=== PATIENT | female | born 1980 | race Caucasian/White ===

== ENCOUNTER 2020-07-26 14:57 | Inpatient (IN) | payer MEDICAID ==
[~2020-07-26] VITALS: Ht 172.7 cm; Wt 85.0 kg
[~2020-07-26 14:57] MED LIST: CARI-277; IBUP800T24 OR; NOR10T; PROZAC
[2020-07-26] MEDS ORDERED: ACCU-CHEK COMFORT CURVE STRIP VI ONE (15:15)
[2020-07-26] MEDS: PROPOFOL 100 ML IV SCH (15:24)
[2020-07-26 15:50] LABS: Urine Bacteria NONE SEEN /hpf (None Seen); Urine Blood Negative /uL (Negative); Urine Hyaline Cast FEW /lpf (0 - 2); Urine Mucus FEW (None Seen); Urine Specific Gravity 1.023 (1.001-1.035); Urine WBC 5 /hpf (0 - 5)
[2020-07-26 15:52] LABS: Basophils # (auto) 0 10 ^3/uL (0-0.2); Eosinophils # (auto) 0 10 ^3/uL (0-0.8); Hemoglobin 16.2 g/dL (12.2-16.2); Neutrophils # (auto) 10.6 10 ^3/uL (1.6-8.6); Red Blood Cells 5.99 10^6/uL (4.0-5.20)
[2020-07-26 15:55] LABS: Basophils % (auto) 0.1 % (0.0-2.0); Hematocrit 53.8 % (36.0-46.0); Lymphocytes # (auto) 1.4 10 ^3/uL (0.4-5.4); Lymphocytes % (auto) 10.2 % (10.0-50.0); Mean Corpuscular Hgb Conc. 30.1 g/dL (32.0-36.0); Mean Corpuscular Volume 89.8 fL (80.0-100.0); Monocytes # (auto) 1.5 10 ^3/uL (0-1.3); Monocytes % (auto) 11.2 % (0.0-12.0); Neutrophils % (auto) 78.5 % (37.0-80.0); Platelet Count (auto) 421 10^3/uL (140-450); Red Cell Distribution Width 14.3 % (11.8-14.3); White Blood Cell 13.5 10^3/uL (4.4-10.8)
[2020-07-26] MEDS ORDERED: cefTRIAXone 1GM/50ML D5W 50 ML IV ONE (16:00)
[2020-07-26 16:09] LABS: Albumin 2.9 g/dL (3.4-5.0)
[2020-07-26 16:11] LABS: Total Protein 7.4 g/dL (6.4-8.2)
[2020-07-26 16:14] LABS: Lactic Acid w/Reflex 5.2 mmol/L (0.4-2.0)
[2020-07-26 16:18] LABS: Bilirubin, Total 0.5 mg/dL (0.2-1.0)
[2020-07-26 16:41] LABS: BUN/Creatinine Ratio 22.7
[2020-07-26 16:43] LABS: INR 1.1 (0.9-1.15); Partial Thromboplastin Time 22.8 sec (23.0-31.2)
[2020-07-26] MEDS ORDERED: DEXTROSE (50%) 50ML SYRG IV PRN (17:15)
[2020-07-26] MEDS ORDERED: InsuLIN R (HUMAN) 100 UNITS in SODIUM CHL 0.9% 99 ML IV SCH ×3 (17:15→21:30)
[2020-07-26] MEDS ORDERED: INSULIN LANTUS (GLARGINE) 1 /0.01ml (100units/ml) SC ONE (17:15)
[2020-07-26] MEDS: SODIUM CHLORIDE 0.9% 1,000 ML IV SCH ×3 (17:36→22:23)
[2020-07-26 17:55] VITALS: BP 77/44
[2020-07-26] MEDS: ACCU-CHEK COMFORT CURVE STRIP VI SCH ×4 (18:00→22:49)
[2020-07-26] MEDS ORDERED: SODIUM CHLORIDE 0.9% 2,000 ML IV ONE (19:00)
[2020-07-26] MEDS: NOREPINEPHRINE 8 MG/250ML KIT 250 ML IV SCH ×3 (19:15→22:24)
[2020-07-26] MEDS: fentaNYL Drip 2500mCg/250mlNS 250 ML IV SCH ×2 (20:07→20:50)
[2020-07-26] MEDS: MIDAZOLAM DRIP 50 mg/50mL 50 ML IV SCH (20:09)
[2020-07-26] MEDS ORDERED: ACETAMINOPHEN 650 mg PER 20.3 mL UD PO ONE (21:00)
[2020-07-26] MEDS ORDERED: SODIUM CHLORIDE 0.9% 1,000 ML IV SCH (21:15)
[2020-07-26] MEDS ORDERED: ACETAMINOPHEN 650 mg PER 20.3 mL UD GT ONE (21:45)
[2020-07-26] MEDS ORDERED: CEFEPIME 2 GM in SODIUM CHL 0.9% 50 ML IV ONE ×4 (21:45)
[2020-07-26 22:35] LABS: Basophils # (auto) 0 10 ^3/uL (0-0.2); Basophils % (auto) 0.1 % (0.0-2.0); Eosinophils # (auto) 0 10 ^3/uL (0-0.8); Monocytes # (auto) 0.5 10 ^3/uL (0-1.3); White Blood Cell 9.6 10^3/uL (4.4-10.8)
[2020-07-26 22:37] LABS: Lymphocytes # (auto) 2.2 10 ^3/uL (0.4-5.4); Lymphocytes % (auto) 22.4 % (10.0-50.0); Mean Corpuscular Hemoglobin 27.1 pg (28.0-32.0); Mean Corpuscular Hgb Conc. 31.3 g/dL (32.0-36.0); Mean Corpuscular Volume 86.5 fL (80.0-100.0); Monocytes % (auto) 4.9 % (0.0-12.0); Neutrophils % (auto) 72.6 % (37.0-80.0); Nucleated Red Blood Cells % 0.2 %; Platelet Count (auto) 246 10^3/uL (140-450); Red Blood Cells 6.65 10^6/uL (4.0-5.20); Red Cell Distribution Width 14.4 % (11.8-14.3)
[2020-07-26 22:42] LABS: Hematocrit 57.5 % (36.0-46.0)
[2020-07-26 22:43] VITALS: BP 80/48
[2020-07-26 23:00] LABS: BUN/Creatinine Ratio 25.5; Calcium 7.9 mg/dL (8.5-10.1); Magnesium 3.1 mg/dL (1.6-2.6); Phosphorus 2.4 mg/dL (2.5-4.90)
[2020-07-26] MEDS: InsuLIN R (HUMAN) 100 UNITS in SODIUM CHL 0.9% 99 ML IV SCH (23:01)
[2020-07-26 23:09] LABS: Potassium 2.9 mmol/L (3.5-5.1)
[2020-07-26] MEDS ORDERED: InsuLIN REG 1unit/0.01ml Soln (100units/ml) ONE (23:09)
[2020-07-26] MEDS ORDERED: POTASSIUM CHL 20MEQ/100ML 200 ML IV ONE (23:22)
[2020-07-26] MEDS: POTASSIUM CHL 20MEQ/100ML 100 ML IV SCH (23:46)
[2020-07-26] MEDS ORDERED: PHENYLEPHRINE IV 250 ML IV ONE (23:51)
[2020-07-27] MEDS: ACCU-CHEK COMFORT CURVE STRIP VI SCH ×19 (00:25→23:33)
[2020-07-27] MEDS ORDERED: IBUPROFEN 100MG/5ML ORAL SUSP 100 MG/5 ML UD GT ONE (00:30)
[2020-07-27] MEDS ORDERED: VANCOMYCIN 1,500 MG in D5W 5% 250 ML IV STA (00:32)
[2020-07-27] MEDS ORDERED: VANCOMYCIN 1GM/250ML 250 ML IV ONE (00:45)
[2020-07-27] MEDS ORDERED: ONDANSETRON HCL 4 MG/2 ML VIAL IV PRN (01:00)
[2020-07-27] MEDS ORDERED: ALBUTEROL SULF 2.5 MG/0.5ML(0.5%) NEB SOLN NEB PRN (01:00)
[2020-07-27] MEDS ORDERED: VANCOMYCIN PER PHARMACY 0 MG IV SCH (01:15)
[2020-07-27] MEDS ORDERED: ACETAMINOPHEN 325 MG TAB PO PRN (01:15)
[2020-07-27] MEDS: POTASSIUM CHL 20MEQ/100ML 100 ML IV SCH ×3 (01:22→06:43)
[2020-07-27] MEDS: MIDAZOLAM DRIP 50 mg/50mL 50 ML IV SCH ×2 (02:04→08:43)
[2020-07-27 02:37] VITALS: BP 112/34
[2020-07-27 03:40] LABS: Anion Gap 18 (5-15); BUN/Creatinine Ratio 28.4; Calcium 7.9 mg/dL (8.5-10.1); Carbon Dioxide 21 mmol/L (21-32); Chloride 111 mmol/L (98-107); GFR African American 22 mL/min; GFR Non-African American 18 mL/min; Sodium 150 mmol/L (136-145)
[2020-07-27 03:50] LABS: Potassium 2.9 mmol/L (3.5-5.1)
[2020-07-27 03:51] LABS: Blood Urea Nitrogen 86 mg/dL (7-18); Glucose 437 mg/dL (74-106)
[2020-07-27] MEDS ORDERED: D5W/SOD CHL 0.9%/KCL 40MEQ 1,000 ML IV ONE (03:55)
--- NOTE | 2020-07-27 04:56 | NUR ---
ACCOMPANIED PT TO CT. PT TRANSPORTED WITH RN AND RT AT BEDSIDE WITH NO INCIDENT. PT ON TRANSPORT VENT WITH APPROPRIATE PORTABLE O2 AND PREVIOUS VENT SETTINGS. AMBU-BAG WITH MASK AND PEEP VALVE WITH PT. UPON RETURN TO PT ROOM PT PLACED BACK ON VENT WITH CURRENT SETTINGS.
[2020-07-27] MEDS ORDERED: PHENYLEPHRINE IV 250 ML IV ONE ×4 (04:57→09:43)
[2020-07-27 04:59] LABS: Lactic Acid w/Reflex 4.9 mmol/L (0.4-2.0)
[2020-07-27 05:02] LABS: Potassium 3.1 mmol/L (3.5-5.1)
[2020-07-27 05:10] LABS: BUN/Creatinine Ratio 31.3; Calcium 7.4 mg/dL (8.5-10.1)
[2020-07-27] MEDS: SODIUM CHLORIDE 0.9% 1,000 ML IV SCH ×3 (05:14→19:15)
[2020-07-27] MEDS: InsuLIN R (HUMAN) 100 UNITS in SODIUM CHL 0.9% 99 ML IV SCH ×4 (05:19→10:55)
[2020-07-27] MEDS: POTASSIUM CHLORIDE 40 MEQ in D5W 5% 1,000 ML IV SCH ×3 (05:27→17:57)
[2020-07-27 06:08] VITALS: BP 108/67
[2020-07-27] MEDS ORDERED: NITROGLYCERIN 0.4 MG SL TAB SL PRN (06:30)
[2020-07-27] MEDS ORDERED: MORPHINE SULF INJ 2 MG/ML SYRINGE 1ML IV PRN (06:30)
[2020-07-27] MEDS: NOREPINEPHRINE 8 MG/250ML KIT 250 ML IV SCH (08:44)
[2020-07-27 08:48] LABS: Urine Bacteria NONE SEEN /hpf (None Seen); Urine Blood 2+ /uL (Negative); Urine Specific Gravity 1.014 (1.001-1.035); Urine WBC 10 /hpf (0 - 5)
[2020-07-27 09:08] LABS: Alcohol, Urine < 3.0 mg/dL (0-10); Amphetamine Screen, Urine NEGATIVE (NEGATIVE); Barbiturate Scree,Urine NEGATIVE (NEGATIVE); Benzodiazephine Screen, Urine POSITIVE (NEGATIVE); Cannabinoid Screen, Urine NEGATIVE (NEGATIVE); Cocaine Screen, Urine NEGATIVE (NEGATIVE); Opiate Scree,Urine NEGATIVE (NEGATIVE); Phencyclidine Screen, Urine NEGATIVE (NEGATIVE)
[2020-07-27] MEDS: D5W/SOD CHL 0.45% 1,000 ML IV SCH ×2 (10:10→20:00)
[2020-07-27] MEDS: PANTOPRAZOLE 40 MG/10 ML VIAL INJ IV SCH (10:11)
[2020-07-27] MEDS: InsuLIN REG 1unit/0.01ml Soln (100units/ml) SC SCH ×4 (12:00→21:17)
[2020-07-27 12:35] LABS: Calcium 7.4 mg/dL (8.5-10.1); Magnesium 2.4 mg/dL (1.6-2.6); Potassium 4.3 mmol/L (3.5-5.1)
[2020-07-27 12:39] LABS: BUN/Creatinine Ratio 32.7
[2020-07-27] MEDS: INSULIN LANTUS (GLARGINE) 1 /0.01ml (100units/ml) SC SCH (12:45)
[2020-07-27] MEDS: CEFEPIME 1 GM in SODIUM CHL 0.9% 50 ML IV SCH ×2 (13:28→20:14)
[2020-07-27] MEDS: PROPOFOL 100 ML IV SCH (14:40)
[2020-07-27 14:48] VITALS: BP 130/85
[2020-07-27 18:37] LABS: BUN/Creatinine Ratio 30.4; Calcium 7.8 mg/dL (8.5-10.1); Potassium 4.8 mmol/L (3.5-5.1)
[2020-07-27 18:40] VITALS: BP 121/77
[2020-07-27 22:00] VITALS: BP 116/77
[2020-07-27] MEDS: ATORVASTATIN 20 MG TAB PO SCH (22:00)
[2020-07-27 22:13] LABS: Cholesterol 87 mg/dL (< 200)
[2020-07-27 22:15] LABS: HDL Cholesterol 10 mg/dL (40-59); LDL Cholesterol 38 mg/dL (< 100); Triglycerides 345 mg/dL (< 150)
[2020-07-28] VITALS (31 sets, daily range): BP systolic 75–154; BP diastolic 43–100
[2020-07-28] MEDS: POTASSIUM CHLORIDE 40 MEQ in D5W 5% 1,000 ML IV SCH ×2 (00:09→05:09)
[2020-07-28] MEDS: SODIUM CHLORIDE 0.9% 1,000 ML IV SCH ×4 (03:05→21:55)
[2020-07-28] MEDS: ACCU-CHEK COMFORT CURVE STRIP VI SCH ×6 (04:21→20:00)
[2020-07-28] MEDS: D5W/SOD CHL 0.45% 1,000 ML IV SCH ×2 (05:10→18:15)
[2020-07-28] MEDS: MIDAZOLAM DRIP 50 mg/50mL 50 ML IV SCH (06:50)
[2020-07-28] MEDS: InsuLIN REG 1unit/0.01ml Soln (100units/ml) SC SCH ×4 (08:28→20:00)
[2020-07-28] MEDS: ASPirin 81 mg TAB PO SCH (08:54)
[2020-07-28] MEDS: CEFEPIME 1 GM in SODIUM CHL 0.9% 50 ML IV SCH ×2 (08:54→22:00)
[2020-07-28] MEDS: PANTOPRAZOLE 40 MG/10 ML VIAL INJ IV SCH (08:54)
[2020-07-28] MEDS: INSULIN LANTUS (GLARGINE) 1 /0.01ml (100units/ml) SC SCH ×2 (08:54→22:00)
[2020-07-28] MEDS: NOREPINEPHRINE 8 MG/250ML KIT 250 ML IV SCH (09:57)
[2020-07-28 10:30] LABS: Basophils # (auto) 0 10 ^3/uL (0-0.2); Eosinophils # (auto) 0.2 10 ^3/uL (0-0.8); Hemoglobin 12.5 g/dL (12.2-16.2); Lymphocytes # (auto) 1.5 10 ^3/uL (0.4-5.4); Monocytes % (auto) 5.8 % (0.0-12.0); Neutrophils % (auto) 80.9 % (37.0-80.0); Nucleated Red Blood Cells % 0.1 %; Red Cell Distribution Width 13.8 % (11.8-14.3)
[2020-07-28 10:32] LABS: Basophils % (auto) 0.2 % (0.0-2.0); Eosinophils % (auto) 1.2 % (0.0-7.0); Hematocrit 38.9 % (36.0-46.0); Lymphocytes % (auto) 11.9 % (10.0-50.0); Mean Corpuscular Hemoglobin 26.9 pg (28.0-32.0); Mean Corpuscular Hgb Conc. 32.2 g/dL (32.0-36.0); Mean Corpuscular Volume 83.7 fL (80.0-100.0); Monocytes # (auto) 0.7 10 ^3/uL (0-1.3); Neutrophils # (auto) 10.4 10 ^3/uL (1.6-8.6); Platelet Count (auto) 125 10^3/uL (140-450); Red Blood Cells 4.65 10^6/uL (4.0-5.20); White Blood Cell 12.9 10^3/uL (4.4-10.8)
--- NOTE | 2020-07-28 10:45 | NUR ---
WOUND CARE NOTE: ADDED PATIENT TO SKIN INTEGRITY MONITORING D/T INTUBATION STATUS. PATIENT IN ER BED 3, INTUBATED, RESTING ON GURNEY. WILL ATTEMPT TO GET HOSPITAL BED WITH AIR PUMP IN ROOM, WILL CALL SPORTS PHOTOGRAPHER. BEDSIDE NURSE IS CURRENTLY UNAVAILABLE. CANNOT ASSESS PATIENT AT THIS TIME. WILL ATTEMPT TO SEE AT LATER TIME.
[2020-07-28 10:53] LABS: Calcium 7.9 mg/dL (8.5-10.1)
[2020-07-28 10:56] LABS: BUN/Creatinine Ratio 18.2; Phosphorus 1.6 mg/dL (2.5-4.90)
[2020-07-28] MEDS: ENOXAPARIN SOD 80 MG/0.8ML SYRINGE SC SCH ×2 (11:51→22:00)
[2020-07-28] MEDS ORDERED: SODIUM CHLORIDE 0.9% 1,000 ML IV ONE (12:15)
[2020-07-28] MEDS ORDERED: INSULIN LANTUS (GLARGINE) 1 /0.01ml (100units/ml) SC ONE (12:15)
--- NOTE | 2020-07-28 14:00 | NUR ---
Admit to ICU from ER on vent MILTON QURESHI admitted to ICU via gurney on cardiac rn, intubated and being bagged by Respiratory Therapist. Patient transfered to bed, connected to mechanical ventilator by therapist, ANDERSON at bedside. Patient connected to ICU monitoring, weighed by bedscale, oriented to Yovana alvarez RN, unit, ventilator and sedation. Bed locked on low position, side rails up x2, bed alarms on at all times, will continue to monitor.
--- NOTE | 2020-07-28 14:05 | NUR ---
LT AC IV infiltrated, discontinued with sterile technique, catheter fully intact. Pressure dressing applied to site. Patient tolerated procedure well.
--- NOTE | 2020-07-28 14:30 | NUR ---
IV insertion IV access obtained, via clean sterile technique by inserting 20 gauge catheter at LT shouldetr after one attempt by Jose ZAVALA. IV secured properly. No trauma to site. Patient tolerated well.
[2020-07-28] MEDS: PROPOFOL 100 ML IV SCH (15:15)
[2020-07-28] MEDS: VANCOMYCIN 1GM/250ML 250 ML IV SCH ×2 (15:15→21:00)
--- NOTE | 2020-07-28 16:00 | NUR ---
Spoke to Dr Bean over the phone, updated on patient's status. Order received to place PICC line.
--- NOTE | 2020-07-28 16:05 | NUR ---
Spoke to Dr Miranda, updated on patient's status. Received order to discontinue sedation, plan to CPAP patient. Read back and verified. Will carry out.
--- NOTE | 2020-07-28 16:40 | NUR ---
MRSA swab sent to lab
--- NOTE | 2020-07-28 16:51 | NUR ---
Spoke to patient's mother over the phone, updated on patent's status and POC, verbalized understanding. All questions and concerns addressed.
--- NOTE | 2020-07-28 18:00 | NUR ---
Wound photograph taken for reference.
[2020-07-28] MEDS: fentaNYL Drip 2500mCg/250mlNS 250 ML IV SCH (19:45)
--- NOTE | 2020-07-28 20:00 | NUR ---
Consent for central line placement obtained from patient's mother with Tanya ZAVALA, Dr Fitch informed.
[2020-07-28] MEDS: ATORVASTATIN 20 MG TAB PO SCH (22:00)
[2020-07-29] VITALS (88 sets, daily range): BP systolic 81–151; BP diastolic 41–91
[2020-07-29] MEDS: D5W/SOD CHL 0.45% 1,000 ML IV SCH ×2 (02:00→12:00)
[2020-07-29] MEDS: InsuLIN REG 1unit/0.01ml Soln (100units/ml) SC SCH ×6 (04:00→20:00)
[2020-07-29] MEDS: ACCU-CHEK COMFORT CURVE STRIP VI SCH ×6 (04:00→20:00)
[2020-07-29] MEDS: VANCOMYCIN 1GM/250ML 250 ML IV SCH ×3 (04:23→22:00)
[2020-07-29 04:28] LABS: Basophils # (auto) 0 10 ^3/uL (0-0.2); Basophils % (auto) 0.4 % (0.0-2.0); Eosinophils # (auto) 0.2 10 ^3/uL (0-0.8); Eosinophils % (auto) 1.3 % (0.0-7.0); Hemoglobin 11.4 g/dL (12.2-16.2); Lymphocytes # (auto) 2.1 10 ^3/uL (0.4-5.4); Lymphocytes % (auto) 16.4 % (10.0-50.0); Mean Corpuscular Hgb Conc. 32.5 g/dL (32.0-36.0); Mean Corpuscular Volume 83.2 fL (80.0-100.0); Monocytes # (auto) 0.8 10 ^3/uL (0-1.3); Monocytes % (auto) 6.2 % (0.0-12.0); Neutrophils # (auto) 9.6 10 ^3/uL (1.6-8.6); Neutrophils % (auto) 75.7 % (37.0-80.0); Nucleated Red Blood Cells % 0.1 %; Platelet Count (auto) 121 10^3/uL (140-450); Red Blood Cells 4.21 10^6/uL (4.0-5.20); Red Cell Distribution Width 13.5 % (11.8-14.3); White Blood Cell 12.6 10^3/uL (4.4-10.8)
[2020-07-29] MEDS: SODIUM CHLORIDE 0.9% 1,000 ML IV SCH ×3 (04:35→17:55)
[2020-07-29 08:17] LABS: Albumin 1.5 g/dL (3.4-5.0); BUN/Creatinine Ratio 11.7; Calcium 7.6 mg/dL (8.5-10.1); Potassium 3.9 mmol/L (3.5-5.1)
[2020-07-29 08:20] LABS: Bilirubin, Total 0.2 mg/dL (0.2-1.0)
[2020-07-29] MEDS: CEFEPIME 1 GM in SODIUM CHL 0.9% 50 ML IV SCH ×2 (10:00→21:17)
[2020-07-29] MEDS: ENOXAPARIN SOD 80 MG/0.8ML SYRINGE SC SCH ×2 (10:13→22:00)
[2020-07-29] MEDS: ASPirin 81 mg TAB PO SCH (10:13)
[2020-07-29] MEDS: PANTOPRAZOLE 40 MG/10 ML VIAL INJ IV SCH (10:14)
[2020-07-29] MEDS: INSULIN LANTUS (GLARGINE) 1 /0.01ml (100units/ml) SC SCH ×2 (10:14→22:00)
--- NOTE | 2020-07-29 10:35 | NUR ---
FAMILY Received phone call from patients mother Gissel Gutierrez, confirmed password, updated on patient condition. Informed Gissel that this RN will notify MD to call her for an update when he arrives to examine patient.
[2020-07-29] MEDS ORDERED: FOLIC ACID 1 MG, MULTIPLE VITAMIN 10 ML, MAGNESIUM SULF SDV 50% 8 MEQ, THIAMINE INJ 100... INJ SCH ×5 (12:00)
--- NOTE | 2020-07-29 12:20 | NUR ---
MD Dr. Gibson at bedside to examine patient, updated on patient condition with new orders, this RN to input into system. Will continue to monitor patient closely.
--- NOTE | 2020-07-29 12:25 | NUR ---
CENTRAL LINE Dr. Gibson at bedside to place central line to the right femoral (TLC): good blood return and flushes easily. New orders received to remove Right IJ. Will continue to monitor patient closely.
--- NOTE | 2020-07-29 12:33 | NUR ---
FAMILY Called and spoke to patients mother Ag Gutierrez, confirmed password and updated on patient condition. Ag was concerned earlier regarding central line not being replaced. Informed AG that it has been replaced and Ag states " Peace of mind, thank you for calling."
--- NOTE | 2020-07-29 13:13 | NUR ---
Nutrition Assessment Est energy needs 7086-4806 kcal (25-30 kcal/kg IBW 63.6kg) est protein needs 64-70g (1-1.1g/kg IBW 63.6kg) Will monitor and reassess prn. Addendum: 07/29/20 at [address] Amended: Links added.
[2020-07-29] MEDS: PROPOFOL 100 ML IV SCH (15:15)
--- NOTE | 2020-07-29 18:00 | NUR ---
WOUND CARE NOTE: PATIENT NOTED TO HAVE WOUND UPON PRESENTATION TO THE ICU FROM ER. PATIENT ADMITTED TO [facility] WITH DIAGNOSIS OF SEPSIS, RESPIRATORY FAILURE. SHE HAS CURRENT JOSE LUIS SCORE OF 8. PATIENT INTUBATED, SEDATED. WOUND PHOTO TAKEN UPON TRANSFER TO ICU BY BEDSIDE NURSE FOR REFERENCE. IT APPEARS THAT PATIENT HAS OBTAINED A DTI TO THE LEFT BUTTOCK, PROBABLY DUE TO HER SÁNCHEZ CATHETER, OR OTHER LINE. SKIN/WOUND CARE PLAN IMPLEMENTED. RECOMMEND: FREQUENT TURN SCHEDULE Q 2 HOURS, PRN CONDITION PERMITS, WITH PRESSURE REDISTRIBUTION, USING PILLOWS/WEDGES, BID/PRN APPLICATION WITH MOISTURE BARRIER CREAM, OPTIFOAM GENTLE SACRAL DRESSING PREVENTATIVE, DAILY/PRN DRESSING TO LEFT BUTTOCK WOUND, DIETARY CONSULT, CONTINUED MONITORING BY WOUND CARE TEAM. Addendum: 07/29/20 at 1839 by Mickie Louis RN Amended: Links added.
[2020-07-29] MEDS: NOREPINEPHRINE 8 MG/250ML KIT 250 ML IV SCH (19:15)
[2020-07-29] MEDS: MIDAZOLAM DRIP 50 mg/50mL 50 ML IV SCH (19:45)
[2020-07-29] MEDS: fentaNYL Drip 2500mCg/250mlNS 250 ML IV SCH (19:45)
[2020-07-29] MEDS: ATORVASTATIN 20 MG TAB PO SCH (21:16)
--- NOTE | 2020-07-29 22:00 | NUR ---
Vancomycin trough level was 11.4, therapeutic, dose given as scheduled.
[2020-07-30] VITALS (62 sets, daily range): BP systolic 83–123; BP diastolic 48–83
[2020-07-30] MEDS: SODIUM CHLORIDE 0.9% 1,000 ML IV SCH ×4 (00:35→20:35)
[2020-07-30 03:41] LABS: Basophils # (auto) 0 10 ^3/uL (0-0.2); Eosinophils # (auto) 0.1 10 ^3/uL (0-0.8); Mean Corpuscular Hgb Conc. 32.4 g/dL (32.0-36.0); White Blood Cell 11.7 10^3/uL (4.4-10.8)
[2020-07-30 03:45] LABS: Basophils % (auto) 0.1 % (0.0-2.0); Eosinophils % (auto) 1.1 % (0.0-7.0); Hematocrit 36.6 % (36.0-46.0); Hemoglobin 11.9 g/dL (12.2-16.2); Lymphocytes # (auto) 1.2 10 ^3/uL (0.4-5.4); Lymphocytes % (auto) 10.6 % (10.0-50.0); Mean Corpuscular Volume 83.3 fL (80.0-100.0); Monocytes # (auto) 1.3 10 ^3/uL (0-1.3); Monocytes % (auto) 11.4 % (0.0-12.0); Neutrophils % (auto) 76.8 % (37.0-80.0); Platelet Count (auto) 148 10^3/uL (140-450); Red Blood Cells 4.39 10^6/uL (4.0-5.20); Red Cell Distribution Width 13.6 % (11.8-14.3)
[2020-07-30] MEDS: ACCU-CHEK COMFORT CURVE STRIP VI SCH ×6 (04:00→20:00)
[2020-07-30] MEDS: InsuLIN REG 1unit/0.01ml Soln (100units/ml) SC SCH ×6 (04:00→20:00)
[2020-07-30] MEDS: D5W/SOD CHL 0.45% 1,000 ML IV SCH ×3 (04:42→18:00)
[2020-07-30] MEDS: VANCOMYCIN 1GM/250ML 250 ML IV SCH ×3 (05:00→21:00)
--- NOTE | 2020-07-30 08:00 | NUR ---
TEMPERATURE Cooling measures applied.
[2020-07-30] MEDS: ASPirin 81 mg TAB PO SCH (09:47)
[2020-07-30] MEDS: CEFEPIME 1 GM in SODIUM CHL 0.9% 50 ML IV SCH ×2 (09:47→21:49)
[2020-07-30] MEDS: PANTOPRAZOLE 40 MG/10 ML VIAL INJ IV SCH (09:47)
[2020-07-30] MEDS: ENOXAPARIN SOD 80 MG/0.8ML SYRINGE SC SCH ×2 (09:48→21:51)
[2020-07-30] MEDS: INSULIN LANTUS (GLARGINE) 1 /0.01ml (100units/ml) SC SCH ×2 (10:09→21:50)
--- NOTE | 2020-07-30 11:35 | NUR ---
MD Dr. Gibson at bedside to examine patient updated on patient condition with no new orders. Will continue to monitor patient closely.
[2020-07-30 12:10] LABS: Hepatitis B Surface Antibody Negative
[2020-07-30 12:40] LABS: Hepatitis A Total Antibody Negative
[2020-07-30 13:15] LABS: Hepatitis B Core Total AB Negative; Hepatitis B Surface Antigen Negative (Negative); Hepatitis C Antibody Negative (Negative)
[2020-07-30] MEDS: PROPOFOL 100 ML IV SCH (15:15)
--- NOTE | 2020-07-30 18:00 | NUR ---
MD Dr. Dozier at bedside to examine patient updated on patient condition with new orders this RN to input into system. Will carry out orders per MD.
[2020-07-30] MEDS: NOREPINEPHRINE 8 MG/250ML KIT 250 ML IV SCH (19:15)
[2020-07-30 19:51] LABS: Albumin 1.5 g/dL (3.4-5.0); Calcium 8.6 mg/dL (8.5-10.1)
[2020-07-30 19:56] LABS: Bilirubin, Total 0.3 mg/dL (0.2-1.0)
[2020-07-30 20:10] LABS: Potassium 2.9 mmol/L (3.5-5.1)
[2020-07-30] MEDS: ATORVASTATIN 20 MG TAB PO SCH (21:49)
[2020-07-30] MEDS: POTASSIUM CHL 20MEQ/100ML 200 ML IV PRN (22:45)
[2020-07-31] VITALS (61 sets, daily range): BP systolic 86–161; BP diastolic 50–107
[2020-07-31] MEDS: POTASSIUM CHL 20MEQ/100ML 200 ML IV PRN (00:43)
[2020-07-31] MEDS: SODIUM CHLORIDE 0.9% 1,000 ML IV SCH ×4 (03:15→23:15)
[2020-07-31] MEDS: D5W/SOD CHL 0.45% 1,000 ML IV SCH ×3 (04:00→18:09)
[2020-07-31] MEDS: ACCU-CHEK COMFORT CURVE STRIP VI SCH ×6 (04:00→20:00)
[2020-07-31] MEDS: InsuLIN REG 1unit/0.01ml Soln (100units/ml) SC SCH ×6 (04:00→20:00)
[2020-07-31 04:51] LABS: Basophils # (auto) 0 10 ^3/uL (0-0.2); Basophils % (auto) 0.2 % (0.0-2.0); Eosinophils # (auto) 0.2 10 ^3/uL (0-0.8); Eosinophils % (auto) 1.7 % (0.0-7.0); Hematocrit 36.7 % (36.0-46.0); Lymphocytes # (auto) 1.5 10 ^3/uL (0.4-5.4); Lymphocytes % (auto) 13.9 % (10.0-50.0); Mean Corpuscular Hemoglobin 27.1 pg (28.0-32.0); Mean Corpuscular Hgb Conc. 32.7 g/dL (32.0-36.0); Mean Corpuscular Volume 82.9 fL (80.0-100.0); Monocytes # (auto) 1.5 10 ^3/uL (0-1.3); Monocytes % (auto) 13.5 % (0.0-12.0); Neutrophils # (auto) 7.6 10 ^3/uL (1.6-8.6); Neutrophils % (auto) 70.7 % (37.0-80.0); Nucleated Red Blood Cells % 0.3 %; Platelet Count (auto) 229 10^3/uL (140-450); Red Blood Cells 4.42 10^6/uL (4.0-5.20); Red Cell Distribution Width 13.6 % (11.8-14.3); White Blood Cell 10.8 10^3/uL (4.4-10.8)
[2020-07-31] MEDS: VANCOMYCIN 1GM/250ML 250 ML IV SCH ×3 (05:00→21:00)
[2020-07-31 05:12] LABS: Potassium 3.5 mmol/L (3.5-5.1)
[2020-07-31 05:18] LABS: Albumin 1.5 g/dL (3.4-5.0); Bilirubin, Total 0.2 mg/dL (0.2-1.0); Calcium 8.5 mg/dL (8.5-10.1)
--- NOTE | 2020-07-31 08:00 | NUR ---
Opening Shift Note Ass[facility] care of [facility], [facility]. No S/S of distress/SOB or pain. See interventions for complete assessment. Bed locked on low position, side rails up x2, bed alarms on at all times, will continue to monitor for changes Q1hr and PRN.
--- NOTE | 2020-07-31 08:05 | NUR ---
Patient's temperature 100 orally, cooling measures done. Will continue to monitor.
--- NOTE | 2020-07-31 08:15 | NUR ---
Dr Petersen at bedside, updated on patient's status. Patient seen and examined. No new orders at this time.
[2020-07-31] MEDS: ENOXAPARIN SOD 80 MG/0.8ML SYRINGE SC SCH ×2 (09:43→22:00)
[2020-07-31] MEDS: ASPirin 81 mg TAB PO SCH (09:43)
[2020-07-31] MEDS: PANTOPRAZOLE 40 MG/10 ML VIAL INJ IV SCH (09:45)
[2020-07-31] MEDS: CEFEPIME 1 GM in SODIUM CHL 0.9% 50 ML IV SCH ×2 (09:54→22:00)
[2020-07-31] MEDS: INSULIN LANTUS (GLARGINE) 1 /0.01ml (100units/ml) SC SCH ×2 (10:00→22:00)
--- NOTE | 2020-07-31 10:30 | NUR ---
EEG in progress at bedside.
--- NOTE | 2020-07-31 10:58 | NUR ---
Dr Miranda at bedside, updated on patient's status. Patient seen and examined. No new orders at this time.
--- NOTE | 2020-07-31 11:59 | NUR ---
Received call from patient's mother Cecy who's able to provide password. Updated on patient's status and POC, verbalized understanding. All questions and concerns addressed.
--- NOTE | 2020-07-31 14:06 | NUR ---
Spoke to Dr Gibson regarding patient's RT IJ removal, order received to do RT neck US for now. Read back and verified. Will carry out.
--- NOTE | 2020-07-31 14:24 | NUR ---
Spoke to Dr Gibson over the phone, order received for carotid scan instead of neck ultrasound. Read back and verified. Will carry out.
--- NOTE | 2020-07-31 14:53 | NUR ---
Nutrition Followup Note Wt: 181.4 kg Pt intubated off propofol. pt is currently NPO with no new diet order. Est energy needs 5467-5982 kcal (25-30 kcal/kg IBW 63.6kg) est protein needs 64-70g (1-1.1g/kg IBW 63.6kg) Will monitor and reassess prn. Labs: GLU 209 H ALB 1.5 L ALP 163 H BM: Pt has no BM reported per RN note Skin: BS 9 high risk, full details in emergency care tech note. PES: Inadequate oral intake aeb pt with NPO diet order, intubated and sedated r/t current medical condition Altered nutrition related labs aeb pt with hyperglycemia, elevated HgbA1c, hypoalb r/t current and chronic medical conditions Comments: Continue to monitor NPO status, labs, skin. F/u high 2-3 days. Rec: 1) refer pt to [facility] on Dc. 2) continue current plan of care. 3) Consider alternate nutrition if pt NPO >48hrs. 4) consider Glucerna 1.2 at a goal rate of 60 ml/hr if GI is accessible, or TPN. 5) advance diet as medically feasible
--- NOTE | 2020-07-31 16:30 | NUR ---
Attempt to bring patient to CT by glass carrier Kaia, RT not available at this time per Kaia.
--- NOTE | 2020-07-31 17:50 | NUR ---
Dr Bean at bedside, updated on patient's status. Informed CT still pending, informed of thrombus RT neck per US report. Received order to remove RT IJ. Read back and verified. Will carry out.
--- NOTE | 2020-07-31 18:11 | NUR ---
RECEIVED PT IN PIPE INSTALLER BED4, ON PB980 VENTILATOR. VENT CONNECTED TO RED OUTLET AND O2 SOURCE ALARMS ARE SET AND AUDIBLE. AMBU BAG AND MASK AT BEDSIDE. LAVAGE SXD FOR COPIOUS AMOUNT OF THICK BALLARD/BROWN. NO VENT CHANGES MADE AT THIS TIME. WILL CONTINUE TO MONITOR.
--- NOTE | 2020-07-31 18:12 | NUR ---
RT IJ discontinued with sterile technique per order from Dr Bean, blue tip intact. Pressure dressing applied to site, no bleeding noted. Patient tolerated procedure well.
[2020-07-31] MEDS: ATORVASTATIN 20 MG TAB PO SCH (22:00)
[2020-07-31] MEDS: NOREPINEPHRINE 8 MG/250ML KIT 250 ML IV SCH (22:35)
--- NOTE | 2020-07-31 22:43 | NUR ---
AT BEDSIDE FOR ROUTINE VENT CHECK. NO VENT CHANGES MADE, WILL CONTINUE TO MONITOR.
[2020-08-01] VITALS (73 sets, daily range): BP systolic 82–139; BP diastolic 52–92
[2020-08-01] MEDS: ACCU-CHEK COMFORT CURVE STRIP VI SCH ×6 (00:23→20:46)
[2020-08-01] MEDS: InsuLIN REG 1unit/0.01ml Soln (100units/ml) SC SCH ×6 (00:25→20:17)
--- NOTE | 2020-08-01 02:32 | NUR ---
AT BEDSIDE FOR ROUTINE VENT CHECK. SXD VIA ETT FOR SCANT AMOUNT OF THIN BALLARD/CLEAR SECRETIONS. NO VENT CHANGES MADE AT THIS TIME. WILL CONTINUE TO MONITOR.
[2020-08-01 04:53] LABS: Red Blood Cells 4.05 10^6/uL (4.0-5.20); White Blood Cell 11.7 10^3/uL (4.4-10.8)
[2020-08-01 04:57] LABS: Hematocrit 33.4 % (36.0-46.0); Hemoglobin 10.6 g/dL (12.2-16.2); Mean Corpuscular Hemoglobin 26.2 pg (28.0-32.0); Mean Corpuscular Hgb Conc. 31.7 g/dL (32.0-36.0); Mean Corpuscular Volume 82.6 fL (80.0-100.0); Platelet Count (auto) 336 10^3/uL (140-450); Red Cell Distribution Width 13.8 % (11.8-14.3)
[2020-08-01 04:58] LABS: Basophils % (manual) 0 (0.0-2.0); Blast Cells 0; Eosinophils % (manual) 0 (0-7); Metamyelocytes % 0; Promyelocytes % 0; Reactive Lymphocytes 0
[2020-08-01] MEDS: VANCOMYCIN 1GM/250ML 250 ML IV SCH ×3 (05:00→20:45)
[2020-08-01 05:18] LABS: Albumin 1.4 g/dL (3.4-5.0); Calcium 8.6 mg/dL (8.5-10.1)
[2020-08-01 05:22] LABS: BUN/Creatinine Ratio 8.8; Bilirubin, Total 0.2 mg/dL (0.2-1.0); Total Protein 6.2 g/dL (6.4-8.2)
[2020-08-01 05:29] LABS: Potassium 2.9 mmol/L (3.5-5.1)
[2020-08-01] MEDS: POTASSIUM CHL 20MEQ/100ML 200 ML IV PRN (05:33)
[2020-08-01] MEDS: SODIUM CHLORIDE 0.9% 1,000 ML IV SCH ×3 (05:55→19:15)
[2020-08-01 06:17] LABS: Band Neutrophils % (manual) 4; Lymphocytes % (manual) 16 (10.0-50.0); Monocytes % (manual) 11 (0-12); Myelocytes % 1
--- NOTE | 2020-08-01 08:00 | NUR ---
Opening Shift Note Assumed care of patient, ET to [facility] vent, unarousable. No S/S of distress/SOB or pain. OGT clamped, 100 ml residuals noted, connected to LIS. Oral temperature 100F, cooling measures done. See interventions for complete assessment. Bed locked on low position, side rails up x2, bed alarms on at all times, will continue to monitor for changes Q1hr and PRN.
--- NOTE | 2020-08-01 08:30 | NUR ---
Dr Petersen at bedside, updated on patient's status. Informed head CT not done yet. Received order for in house covid test, read back and verified. Will carry out.
[2020-08-01] MEDS ORDERED: POTASSIUM CHL 20MEQ/100ML 200 ML IV PRN (09:15)
[2020-08-01] MEDS: ASPirin 81 mg TAB PO SCH (09:26)
[2020-08-01] MEDS: ENOXAPARIN SOD 80 MG/0.8ML SYRINGE SC SCH ×2 (09:26→21:35)
[2020-08-01] MEDS: PANTOPRAZOLE 40 MG/10 ML VIAL INJ IV SCH (09:26)
[2020-08-01] MEDS: INSULIN LANTUS (GLARGINE) 1 /0.01ml (100units/ml) SC SCH ×2 (09:27→21:48)
[2020-08-01] MEDS: CEFEPIME 1 GM in SODIUM CHL 0.9% 50 ML IV SCH ×2 (09:28→21:35)
[2020-08-01] MEDS: NOREPINEPHRINE 8 MG/250ML KIT 250 ML IV SCH (09:31)
--- NOTE | 2020-08-01 09:48 | NUR ---
Covid swab sent to lab
--- NOTE | 2020-08-01 10:48 | NUR ---
PEEP INCREASED TO 8CMH20 FIO2 TO 60% MD MONTGOMERY AWARE.
[2020-08-01] MEDS: D5W/SOD CHL 0.45% 1,000 ML IV SCH (12:49)
--- NOTE | 2020-08-01 14:00 | NUR ---
Patient unstable to be transported to CT at this time, Dr Petersen aware.
--- NOTE | 2020-08-01 15:00 | NUR ---
Dr Gibson at bedside, updated on patient's status. Patient seen and examined. Order for chest xray received, read back and verified. Will carry out.
--- NOTE | 2020-08-01 15:22 | NUR ---
Patient out of room to CT.
--- NOTE | 2020-08-01 15:28 | NUR ---
Dr Elvis Bean in the unit, updated on patient's status. Will see patient in CT.
--- NOTE | 2020-08-01 16:05 | NUR ---
INFORMED BY RN THAT MD MONTGOMERY INCREASED PEEP TO 10CM H20. ORDER PLACED. POX 90%
--- NOTE | 2020-08-01 16:30 | NUR ---
Paged Dr Mirella Bean regarding patient's head CT report, awaiting call back.
[2020-08-01] MEDS: PROPOFOL 100 ML IV SCH (19:30)
[2020-08-01] MEDS: MIDAZOLAM DRIP 50 mg/50mL 50 ML IV SCH (19:45)
[2020-08-01] MEDS: fentaNYL Drip 2500mCg/250mlNS 250 ML IV SCH (19:45)
[2020-08-01] MEDS: ATORVASTATIN 20 MG TAB PO SCH (21:35)
--- NOTE | 2020-08-01 22:40 | NUR ---
LEVOPHED LEVOPHED WAS DECREASED BUT BP DECREASED TO 82/52. KEPT LEVO AT 8 MCG/MIN
[2020-08-02] VITALS (94 sets, daily range): BP systolic 81–136; BP diastolic 47–85
[2020-08-02] MEDS: ACCU-CHEK COMFORT CURVE STRIP VI SCH ×6 (00:09→20:32)
[2020-08-02] MEDS: InsuLIN REG 1unit/0.01ml Soln (100units/ml) SC SCH ×6 (00:10→20:47)
[2020-08-02] MEDS: D5W/SOD CHL 0.45% 1,000 ML IV SCH ×3 (01:12→16:00)
--- NOTE | 2020-08-02 04:00 | NUR ---
Patient bathe/linen change Patient given complete bath. Skin integrity assessed for any changes. Linens changed. Patient repositioned for comfort.
[2020-08-02] MEDS: VANCOMYCIN 1GM/250ML 250 ML IV SCH ×3 (04:46→20:32)
[2020-08-02] MEDS: SODIUM CHLORIDE 0.9% 1,000 ML IV SCH ×4 (04:46→20:32)
[2020-08-02 05:40] LABS: Basophils # (auto) 0 10 ^3/uL (0-0.2); Basophils % (auto) 0.2 % (0.0-2.0); Eosinophils # (auto) 0.2 10 ^3/uL (0-0.8); Eosinophils % (auto) 1.4 % (0.0-7.0); Hematocrit 33.3 % (36.0-46.0); Hemoglobin 10.5 g/dL (12.2-16.2); Lymphocytes # (auto) 1.7 10 ^3/uL (0.4-5.4); Lymphocytes % (auto) 13.7 % (10.0-50.0); Mean Corpuscular Hemoglobin 25.9 pg (28.0-32.0); Mean Corpuscular Hgb Conc. 31.4 g/dL (32.0-36.0); Mean Corpuscular Volume 82.5 fL (80.0-100.0); Monocytes # (auto) 1.1 10 ^3/uL (0-1.3); Monocytes % (auto) 9.4 % (0.0-12.0); Neutrophils # (auto) 9.1 10 ^3/uL (1.6-8.6); Neutrophils % (auto) 75.3 % (37.0-80.0); Nucleated Red Blood Cells % 0.1 %; Platelet Count (auto) 366 10^3/uL (140-450); Red Blood Cells 4.04 10^6/uL (4.0-5.20); Red Cell Distribution Width 13.7 % (11.8-14.3); White Blood Cell 12.1 10^3/uL (4.4-10.8)
[2020-08-02 05:45] LABS: Potassium 3.2 mmol/L (3.5-5.1)
[2020-08-02 05:52] LABS: Albumin 1.4 g/dL (3.4-5.0); BUN/Creatinine Ratio 9.8; Bilirubin, Total 0.2 mg/dL (0.2-1.0); Calcium 8.3 mg/dL (8.5-10.1); Total Protein 6.3 g/dL (6.4-8.2)
--- NOTE | 2020-08-02 06:03 | NUR ---
Respiratory note: RECEIVED PATIENT ON VENT WITH ORDERED SETTTINGS. VENT PLUGGED INTO RED OUTLET WITH ALL ALARMS SET AND AUDIBLE. AMBU BAG AND PEEP VALVE AT BEDSIDE. PATIENT INTUBATED WITH 8.0 SECURED WITH HOLISTER AT 23 CM AT THE LIP. ETT MOVED TO LEFT POSITION WITHOUT INCIDENT. NO SKIN BREAKDOWN NOTED ON FACE. TIP OF RIGHT TONGUE HAS SMALL ULCER. ETS SMALL THICK WHITE/YELLOW SECRETIONS. ORAL SUCTION DONE.ABG DONE AT THIS TIME.
--- NOTE | 2020-08-02 08:00 | NUR ---
Opening Shift Note Assumed care of patient, ET to the [facility] vent, unarousable with no sedation. No S/S of distress/SOB or pain. See interventions for complete assessment. Bed locked on low position, side rails up x2, bed alarms on at all times, will continue to monitor for changes Q1hr and PRN.
--- NOTE | 2020-08-02 08:05 | NUR ---
Dr Petersen at bedside, updated on patient's status. Patient seen and examined. No new orders at this time.
[2020-08-02] MEDS: CEFEPIME 1 GM in SODIUM CHL 0.9% 50 ML IV SCH ×2 (09:18→22:00)
[2020-08-02] MEDS: PANTOPRAZOLE 40 MG/10 ML VIAL INJ IV SCH (09:19)
[2020-08-02] MEDS: ASPirin 81 mg TAB PO SCH (09:19)
[2020-08-02] MEDS: INSULIN LANTUS (GLARGINE) 1 /0.01ml (100units/ml) SC SCH ×2 (09:23→20:47)
[2020-08-02] MEDS: ENOXAPARIN SOD 80 MG/0.8ML SYRINGE SC SCH ×2 (09:24→20:33)
[2020-08-02] MEDS: NOREPINEPHRINE 8 MG/250ML KIT 250 ML IV SCH (09:37)
--- NOTE | 2020-08-02 11:30 | NUR ---
WOUND CARE NOTE: IN TO SEE PATIENT AT THIS TIME PER NEW WOUND DISCOVERY BY BEDSIDE NURSE UPON ASSESSMENT. WOUND PHOTOS TAKEN AT THAT TIME FOR REFERENCE. PATIENT REMAINS INTUBATED, SEDATED. SHE HAS CURRENT JOSE LUIS SCORE OF 8. PATIENT HAS DEVELOPED A NEW INTACT DTI TO THE MEDIAL SACRUM. OPTIFOAM GENTLE SACRAL DRESSING APPLIED. LEFT EAR HAS NON BLANCHABLE AREA NOTED. SKIN REMAINS INTACT. WOUND LEFT OPEN TO AIR. BEDSIDE NURSE SHOULD OFFLOAD PRESSURE TO THE LEFT EAR WITH FOAM AND/OR ROLLED WASHCLOTH. SHE SHOULD BE RECEIVING SIDE TO SIDE POSITIONING, AVOIDING SUPINE, CONTINUATION WITH ALL OTHER WOUND CARE ORDERS PREVIOUSLY PRESCRIBED BY MD. WOUND CARE TEAM WILL CONTINUE TO MONITOR. Addendum: 08/02/20 at 1744 by Mickie Loius RN Amended: Links added.
[2020-08-02] MEDS: POTASSIUM CHL 20MEQ/100ML 100 ML IV SCH ×2 (12:35→16:52)
--- NOTE | 2020-08-02 12:45 | NUR ---
Dr Gibson at bedside, updated on patient's status. Patient seen and examined. No new orders at this time.
--- NOTE | 2020-08-02 13:30 | NUR ---
Dr Bean at bedside, updated on patient's status. Patient seen and examined. Will call and update patient's mother.
[2020-08-02] MEDS ORDERED: ONDANSETRON HCL 4 MG/2 ML VIAL IV PRN (14:15)
[2020-08-02] MEDS ORDERED: LORazepam 2MG/ML-1ML VIAL IV PRN (14:15)
[2020-08-02] MEDS ORDERED: MORPHINE SULF INJ 2 MG/ML SYRINGE 1ML IV PRN (14:15)
[2020-08-02] MEDS ORDERED: LORazepam 2MG/ML-1ML VIAL IV ONE (14:30)
--- NOTE | 2020-08-02 15:00 | NUR ---
Patient's sister Linnea and nephew Nicolas at bedside.
--- NOTE | 2020-08-02 15:05 | NUR ---
Placed call to [facility], spoke to Jonathan, needed information provided. Referral number [id number].
[2020-08-02] MEDS: PROPOFOL 100 ML IV SCH (15:15)
--- NOTE | 2020-08-02 16:00 | NUR ---
Received call from Jonathan of [facility] stating that patient's sister Linnea agreed with organ donation and to keep everything going at this time, read back and verified.
--- NOTE | 2020-08-02 17:30 | NUR ---
Paged Dr Bean, awaiting call back.
[2020-08-02] MEDS: fentaNYL Drip 2500mCg/250mlNS 250 ML IV SCH (19:37)
[2020-08-02] MEDS: MIDAZOLAM DRIP 50 mg/50mL 50 ML IV SCH (19:37)
--- NOTE | 2020-08-02 20:00 | NUR ---
SHIFT OPENING NOTE RECEIVED PATIENT INTUBATED WITH NO SEDATION. ETT 8.0, 24 AT THE LIP. SUCTIONED LOTS OF FROAMY SECRETIONS ORALLY. NO GAG OR COUGH REFLEXES. VENT SETTINGS AC 14, TV 500, PEEP 10, FI02 50%. OG TUBE CLAMPED. PLACEMENT VERIFIED BY AUSCULTATION. SÁNCHEZ CATH DRAINING YELLOW URINE TO GRAVITY. LEVO AT 6 AND NS AT 150 INFUSING THROUGH RIGHT FEMORAL LINE. AWAITING FOR [facility] TO COME ASSESS PATIENT. WILL CLOSELY MONITOR.
[2020-08-02] MEDS: ATORVASTATIN 20 MG TAB PO SCH (20:33)
--- NOTE | 2020-08-02 22:00 | NUR ---
[facility] DIETARY SERVER AT BEDSIDE CAIN IN TO EVALUATE PATIENT.
--- NOTE | 2020-08-02 23:20 | NUR ---
LEFT VOICE MESSAGE FOR DR. TIRADO COVERING FOR Mirella ADKINS REGARDING [facility] REQUESTED ORDER SET. AWAITING CALL BACK.
--- NOTE | 2020-08-02 23:30 | NUR ---
CALLED BACK ORDERS OBTAINED FOR [facility] EVALUATION.
[2020-08-03] VITALS (92 sets, daily range): BP systolic 89–159; BP diastolic 36–100
[2020-08-03 00:40] LABS: Basophils # (auto) 0 10 ^3/uL (0-0.2); Eosinophils # (auto) 0.2 10 ^3/uL (0-0.8); Hemoglobin 11.5 g/dL (12.2-16.2); Mean Corpuscular Hgb Conc. 32.4 g/dL (32.0-36.0)
[2020-08-03 00:43] LABS: Basophils % (auto) 0.3 % (0.0-2.0); Eosinophils % (auto) 1.7 % (0.0-7.0); Hematocrit 35.5 % (36.0-46.0); Lymphocytes # (auto) 1.7 10 ^3/uL (0.4-5.4); Lymphocytes % (auto) 14.3 % (10.0-50.0); Mean Corpuscular Hemoglobin 26.7 pg (28.0-32.0); Mean Corpuscular Volume 82.2 fL (80.0-100.0); Monocytes % (auto) 8.2 % (0.0-12.0); Neutrophils # (auto) 9.1 10 ^3/uL (1.6-8.6); Neutrophils % (auto) 75.5 % (37.0-80.0); Nucleated Red Blood Cells % 0.3 %; Platelet Count (auto) 396 10^3/uL (140-450); Red Blood Cells 4.32 10^6/uL (4.0-5.20); Red Cell Distribution Width 14.1 % (11.8-14.3)
[2020-08-03] MEDS: ACCU-CHEK COMFORT CURVE STRIP VI SCH ×12 (00:47→21:56)
[2020-08-03] MEDS: D5W/SOD CHL 0.45% 1,000 ML IV SCH ×3 (00:47→21:55)
[2020-08-03] MEDS: InsuLIN REG 1unit/0.01ml Soln (100units/ml) SC SCH ×11 (00:48→22:08)
[2020-08-03 00:54] LABS: Albumin 1.6 g/dL (3.4-5.0); BUN/Creatinine Ratio 10.6; Calcium 8.7 mg/dL (8.5-10.1); Magnesium 1.9 mg/dL (1.6-2.6); Potassium 3.2 mmol/L (3.5-5.1)
[2020-08-03 00:57] LABS: Bilirubin, Total 0.2 mg/dL (0.2-1.0); Total Protein 6.7 g/dL (6.4-8.2)
[2020-08-03 01:14] LABS: Bilirubin, Direct 0.1 mg/dL (0-0.2)
[2020-08-03 01:34] LABS: Phosphorus 3.6 mg/dL (2.5-4.90)
[2020-08-03 02:34] LABS: INR 0.99 (0.9-1.15); Partial Thromboplastin Time 25.1 sec (23.0-31.2)
--- NOTE | 2020-08-03 03:30 | NUR ---
MORNING HYGIENE CARE FULL BED BATH PERFORMED WITH CHG WIPES. ORAL CARE DONE. PARIS CARE DONE. GOWN CHANGED. PARTIAL LINEN CHANGED. PATIENT REPOSITIONED. TOLERATED IT WELL.
[2020-08-03] MEDS: SODIUM CHLORIDE 0.9% 1,000 ML IV SCH ×3 (03:40→18:14)
[2020-08-03 03:57] LABS: Urine Bacteria FEW /hpf (None Seen); Urine Blood 1+ /uL (Negative); Urine Budding Yeast MANY /hpf (None Seen); Urine Mucus FEW (None Seen); Urine Specific Gravity 1.006 (1.001-1.035); Urine WBC 13 /hpf (0 - 5)
[2020-08-03] MEDS: VANCOMYCIN 1GM/250ML 250 ML IV SCH ×3 (04:11→21:07)
--- NOTE | 2020-08-03 07:08 | NUR ---
END OF SHIFT REPORT GIVEN AND CARE ENDORSED TO AG ZAVALA.
[2020-08-03 07:47] LABS: Albumin 1.4 g/dL (3.4-5.0); Calcium 8.8 mg/dL (8.5-10.1); Magnesium 2.3 mg/dL (1.6-2.6); Potassium 3.1 mmol/L (3.5-5.1)
[2020-08-03 07:48] LABS: INR 0.98 (0.9-1.15); Partial Thromboplastin Time 22.8 sec (23.0-31.2)
--- NOTE | 2020-08-03 08:00 | NUR ---
Opening Shift Note Ass[facility] care of patient, [facility], no sedation. Comfort measures, for terminal wean, patient's family agreed for organ donation with [facility]. No S/S of distress/SOB or pain. See interventions for complete assessment. Bed locked on low position, side rails up x2, bed alarms on at all times, will continue to monitor for changes Q1hr and PRN.
[2020-08-03 08:01] LABS: BUN/Creatinine Ratio 9.6; Bilirubin, Direct 0.1 mg/dL (0-0.2); Bilirubin, Total 0.2 mg/dL (0.2-1.0); Phosphorus 3.5 mg/dL (2.5-4.90); Total Protein 6.4 g/dL (6.4-8.2)
--- NOTE | 2020-08-03 08:50 | NUR ---
Dr Miranda at bedside, updated on patient's status. Patient seen and examined. No new orders at this time.
--- NOTE | 2020-08-03 09:00 | NUR ---
Paged Dr Bean, awaiting call back.
--- NOTE | 2020-08-03 09:57 | NUR ---
Spoke to Dr Mirella Bean over the phone, updated on patient's status, informed of continuity of care per [facility] protocol because family agreed to organ donation, verbalized understanding. No new orders at this time.
--- NOTE | 2020-08-03 10:00 | NUR ---
SPUTUM SAMPLE COLLECTED AND SENT TO LAB THIS AM.
[2020-08-03] MEDS: ASPirin 81 mg TAB PO SCH (10:01)
[2020-08-03] MEDS: PANTOPRAZOLE 40 MG/10 ML VIAL INJ IV SCH (10:01)
[2020-08-03] MEDS: ENOXAPARIN SOD 80 MG/0.8ML SYRINGE SC SCH ×2 (10:06→21:56)
[2020-08-03] MEDS: INSULIN LANTUS (GLARGINE) 1 /0.01ml (100units/ml) SC SCH ×2 (10:17→22:08)
[2020-08-03] MEDS: NOREPINEPHRINE 8 MG/250ML KIT 250 ML IV SCH (10:24)
[2020-08-03] MEDS: CEFEPIME 1 GM in SODIUM CHL 0.9% 50 ML IV SCH ×2 (11:21→22:09)
--- NOTE | 2020-08-03 12:00 | NUR ---
Urine sample sent to lab.
[2020-08-03 12:19] LABS: Urine WBC None Seen /hpf (0 - 5)
[2020-08-03 12:35] LABS: Urine Bacteria NONE SEEN /hpf (None Seen); Urine Blood 1+ /uL (Negative); Urine Mucus FEW (None Seen); Urine Specific Gravity 1.016 (1.001-1.035)
[2020-08-03 12:39] LABS: Basophils # (auto) 0 10 ^3/uL (0-0.2); Basophils % (auto) 0.5 % (0.0-2.0); Eosinophils # (auto) 0.2 10 ^3/uL (0-0.8); Eosinophils % (auto) 1.6 % (0.0-7.0); Hematocrit 31.8 % (36.0-46.0); Hemoglobin 10.4 g/dL (12.2-16.2); Lymphocytes % (auto) 20.1 % (10.0-50.0); Mean Corpuscular Hemoglobin 27.3 pg (28.0-32.0); Mean Corpuscular Hgb Conc. 32.7 g/dL (32.0-36.0); Mean Corpuscular Volume 83.3 fL (80.0-100.0); Monocytes # (auto) 0.7 10 ^3/uL (0-1.3); Monocytes % (auto) 7.5 % (0.0-12.0); Neutrophils % (auto) 70.3 % (37.0-80.0); Platelet Count (auto) 345 10^3/uL (140-450); Red Blood Cells 3.81 10^6/uL (4.0-5.20); Red Cell Distribution Width 13.6 % (11.8-14.3); White Blood Cell 9.9 10^3/uL (4.4-10.8)
[2020-08-03 12:56] LABS: INR 1.02 (0.9-1.15); Partial Thromboplastin Time 26.5 sec (23.0-31.2)
[2020-08-03 12:57] LABS: Amylase 150 U/L (25-115); Anion Gap 3 (5-15); Blood Urea Nitrogen 6 mg/dL (7-18); Carbon Dioxide 34 mmol/L (21-32); Chloride 106 mmol/L (98-107); Glucose 118 mg/dL (74-106); Magnesium 2.2 mg/dL (1.6-2.6); Sodium 143 mmol/L (136-145)
[2020-08-03 13:06] LABS: Alanine Aminotransferase 27 U/L (13-56); Albumin 1.3 g/dL (3.4-5.0); Alkaline Phosphatase 140 U/L (45-117); Aspartate Aminotransferase 39 U/L (15-37); BUN/Creatinine Ratio 13.3; Bilirubin, Direct < 0.1 mg/dL (0-0.2); Bilirubin, Total 0.2 mg/dL (0.2-1.0); Calcium 8.3 mg/dL (8.5-10.1); GFR African American 198 mL/min; GFR Non-African American 164 mL/min; Lactate Dehydrogenase 431 U/L (84-246); Lipase 1856 U/L (73-393); Phosphorus 3.2 mg/dL (2.5-4.90); Total Protein 6.1 g/dL (6.4-8.2)
--- NOTE | 2020-08-03 14:36 | NUR ---
Nutrition Followup Note Wt: 68.9 kg Pt intubated off propofol. pt is currently NPO with no new diet order for terminal wean Est energy needs 7762-6164 kcal (25-30 kcal/kg IBW 63.6kg) est protein needs 64-70g (1-1.1g/kg IBW 63.6kg) Will monitor and reassess prn. Labs: CO2 34 H, GLU 184 H ALB 1.4 L, AMYLASE/LIPASE 149/1875 H BM: Pt has no BM reported with 100 ml gastric residual per RN note Skin: BS 9 high risk, full details in care specialist note. PES: Inadequate oral intake aeb pt with NPO diet order, intubated and sedated r/t current medical condition Altered nutrition related labs aeb pt with hyperglycemia, elevated HgbA1c, hypoalb r/t current and chronic medical conditions Comments: Continue to monitor NPO status, labs, skin. F/u high 2-3 days. Rec: 1) continue current plan of care. 2) advance diet as medically feasible
[2020-08-03] MEDS: PROPOFOL 100 ML IV SCH (15:15)
--- NOTE | 2020-08-03 15:46 | NUR ---
Dr Mirella Bean at bedside, updated on patient's status. Patient seen and examined. Will carry out new orders.
[2020-08-03] MEDS: POTASSIUM CHL 20MEQ/100ML 100 ML IV SCH ×2 (16:45→18:14)
--- NOTE | 2020-08-03 18:23 | NUR ---
Urine sample sent to lab
[2020-08-03 19:09] LABS: Urine Bacteria FEW /hpf (None Seen); Urine Blood 1+ /uL (Negative); Urine Budding Yeast MODERATE /hpf (None Seen); Urine Mucus FEW (None Seen); Urine Specific Gravity 1.018 (1.001-1.035); Urine WBC 41 /hpf (0 - 5)
[2020-08-03 19:19] LABS: Basophils # (auto) 0 10 ^3/uL (0-0.2); Eosinophils # (auto) 0.2 10 ^3/uL (0-0.8); Hemoglobin 10.2 g/dL (12.2-16.2); Monocytes # (auto) 0.7 10 ^3/uL (0-1.3); Nucleated Red Blood Cells % 0.1 %; Red Cell Distribution Width 13.8 % (11.8-14.3)
[2020-08-03 19:21] LABS: Basophils % (auto) 0.4 % (0.0-2.0); Eosinophils % (auto) 1.6 % (0.0-7.0); Hematocrit 31.5 % (36.0-46.0); Lymphocytes % (auto) 19.9 % (10.0-50.0); Mean Corpuscular Hemoglobin 26.6 pg (28.0-32.0); Mean Corpuscular Hgb Conc. 32.2 g/dL (32.0-36.0); Mean Corpuscular Volume 82.4 fL (80.0-100.0); Monocytes % (auto) 6.8 % (0.0-12.0); Neutrophils # (auto) 7.1 10 ^3/uL (1.6-8.6); Neutrophils % (auto) 71.3 % (37.0-80.0); Platelet Count (auto) 379 10^3/uL (140-450); Red Blood Cells 3.83 10^6/uL (4.0-5.20)
[2020-08-03 19:35] LABS: Potassium 3.2 mmol/L (3.5-5.1)
[2020-08-03 19:37] LABS: INR 0.98 (0.9-1.15); Partial Thromboplastin Time 24.9 sec (23.0-31.2)
[2020-08-03 19:45] LABS: Albumin 1.4 g/dL (3.4-5.0); BUN/Creatinine Ratio 16.7; Bilirubin, Direct 0.1 mg/dL (0-0.2); Bilirubin, Total 0.2 mg/dL (0.2-1.0); Calcium 8.3 mg/dL (8.5-10.1); Magnesium 2.2 mg/dL (1.6-2.6); Phosphorus 3.6 mg/dL (2.5-4.90); Total Protein 6.1 g/dL (6.4-8.2)
[2020-08-03] MEDS: MIDAZOLAM DRIP 50 mg/50mL 50 ML IV SCH (19:45)
[2020-08-03] MEDS: fentaNYL Drip 2500mCg/250mlNS 250 ML IV SCH (19:45)
--- NOTE | 2020-08-03 19:45 | NUR ---
Opening Shift Note received report from day shift RN Gissel. Pt came in on 07/26/20 via EMS. Pt was found unresponsive by sister. Paramedics checked blood sugar and it read high. Upon arrival to the ER, patient was intubated. Pt's serum glucose was 1150. Pt was diagnosed with DKA and admitted to ICU. 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 Cerebellar tonsillar herniation." Dr Petersen on the case and last seen patient 08/03. PMH includes, anxiety, depression, and HTN. Pt is unresponsive. Per report, the plan was to terminally wean the patient yesterday 08/02, but the patient is an organ donor and will be harvested tomorrow 08/04/20. All history obtained from chart and previous RN. [facility] currently at bedside. Pt is currently intubated, opens eyes spontaneously but has no purposeful movements or tracking noted. Pt is currently on Levo for blood pressure support. VSS at this time. Bed is locked at lowest position, side rails are up. No s/s of distress noted at this time. Will continue to monitor.
[2020-08-03] MEDS: ATORVASTATIN 20 MG TAB PO SCH (21:55)
[2020-08-04] VITALS (98 sets, daily range): BP systolic 86–181; BP diastolic 47–102
[2020-08-04] MEDS: ACCU-CHEK COMFORT CURVE STRIP VI SCH ×12 (00:03→22:48)
[2020-08-04] MEDS: InsuLIN REG 1unit/0.01ml Soln (100units/ml) SC SCH ×12 (00:04→22:00)
--- NOTE | 2020-08-04 00:15 | NUR ---
Urine walked up to lab
--- NOTE | 2020-08-04 00:30 | NUR ---
[facility] Kj from [facility] called for update. Updated pt status. All questions addressed. Kj stated he will call back again around 0600 to get another update.
[2020-08-04] MEDS: SODIUM CHLORIDE 0.9% 1,000 ML IV SCH ×4 (00:35→20:54)
[2020-08-04 00:43] LABS: Amylase 90 U/L (25-115); Anion Gap 5 (5-15); BUN/Creatinine Ratio 20.6; Blood Urea Nitrogen 7 mg/dL (7-18); Carbon Dioxide 31 mmol/L (21-32); Chloride 108 mmol/L (98-107); GFR African American 274 mL/min; GFR Non-African American 227 mL/min; Glucose 148 mg/dL (74-106); Lipase 1170 U/L (73-393); Magnesium 1.8 mg/dL (1.6-2.6); Potassium 3.9 mmol/L (3.5-5.1); Sodium 144 mmol/L (136-145)
[2020-08-04 00:56] LABS: Alanine Aminotransferase 19 U/L (13-56); Alkaline Phosphatase 78 U/L (45-117); Aspartate Aminotransferase 34 U/L (15-37); Total Protein 3.8 g/dL (6.4-8.2)
[2020-08-04 01:20] LABS: Bilirubin, Direct 0.2 mg/dL (0-0.2); Lactate Dehydrogenase 385 U/L (84-246); Phosphorus 3.6 mg/dL (2.5-4.90)
--- NOTE | 2020-08-04 02:30 | NUR ---
Complete Linen change/ CHG wipe bed bath linen changed at this time. Pt provided with a bed bath using CHG wipes. Pt tolerated well, VSS. Will continue to monitor.
[2020-08-04 03:16] LABS: Basophils # (auto) 0.1 10 ^3/uL (0-0.2); Basophils % (auto) 1.2 % (0.0-2.0); Eosinophils # (auto) 0.1 10 ^3/uL (0-0.8); Eosinophils % (auto) 1.5 % (0.0-7.0); Hematocrit 32.9 % (36.0-46.0); Hemoglobin 10.7 g/dL (12.2-16.2); Lymphocytes # (auto) 2.1 10 ^3/uL (0.4-5.4); Lymphocytes % (auto) 23.2 % (10.0-50.0); Mean Corpuscular Hemoglobin 26.7 pg (28.0-32.0); Mean Corpuscular Hgb Conc. 32.4 g/dL (32.0-36.0); Mean Corpuscular Volume 82.5 fL (80.0-100.0); Monocytes # (auto) 0.6 10 ^3/uL (0-1.3); Monocytes % (auto) 6.6 % (0.0-12.0); Neutrophils % (auto) 67.5 % (37.0-80.0); Nucleated Red Blood Cells % 0.1 %; Platelet Count (auto) 353 10^3/uL (140-450); Red Blood Cells 3.99 10^6/uL (4.0-5.20); Red Cell Distribution Width 13.6 % (11.8-14.3); White Blood Cell 8.9 10^3/uL (4.4-10.8)
[2020-08-04 03:22] LABS: INR 0.99 (0.9-1.15)
[2020-08-04 04:18] LABS: Urine Amorphous Crystal MOD /hpf (None Seen); Urine Bacteria FEW /hpf (None Seen); Urine Blood 1+ /uL (Negative); Urine Mucus FEW (None Seen); Urine Specific Gravity 1.016 (1.001-1.035); Urine WBC 8 /hpf (0 - 5)
[2020-08-04] MEDS: VANCOMYCIN 1GM/250ML 250 ML IV SCH ×3 (05:15→20:55)
[2020-08-04 05:29] LABS: Basophils # (auto) 0 10 ^3/uL (0-0.2); Basophils % (auto) 0.3 % (0.0-2.0); Eosinophils # (auto) 0.1 10 ^3/uL (0-0.8); Eosinophils % (auto) 1.4 % (0.0-7.0); Nucleated Red Blood Cells % 0.1 %
[2020-08-04 05:32] LABS: Hematocrit 31.5 % (36.0-46.0); Hemoglobin 10.3 g/dL (12.2-16.2); Lymphocytes # (auto) 2.1 10 ^3/uL (0.4-5.4); Lymphocytes % (auto) 25.1 % (10.0-50.0); Mean Corpuscular Hemoglobin 26.9 pg (28.0-32.0); Mean Corpuscular Hgb Conc. 32.6 g/dL (32.0-36.0); Mean Corpuscular Volume 82.3 fL (80.0-100.0); Monocytes # (auto) 0.6 10 ^3/uL (0-1.3); Monocytes % (auto) 6.5 % (0.0-12.0); Neutrophils # (auto) 5.7 10 ^3/uL (1.6-8.6); Neutrophils % (auto) 66.7 % (37.0-80.0); Platelet Count (auto) 349 10^3/uL (140-450); Red Blood Cells 3.82 10^6/uL (4.0-5.20); Red Cell Distribution Width 13.8 % (11.8-14.3); White Blood Cell 8.6 10^3/uL (4.4-10.8)
[2020-08-04 05:40] LABS: Chloride 109 mmol/L (98-107); INR 0.97 (0.9-1.15); Magnesium 2.3 mg/dL (1.6-2.6); Partial Thromboplastin Time 24.3 sec (23.0-31.2); Potassium 3.4 mmol/L (3.5-5.1); Sodium 144 mmol/L (136-145)
[2020-08-04 05:47] LABS: Alanine Aminotransferase 28 U/L (13-56); Albumin 1.4 g/dL (3.4-5.0); Alkaline Phosphatase 130 U/L (45-117); Amylase 147 U/L (25-115); Anion Gap 3 (5-15); Aspartate Aminotransferase 48 U/L (15-37); BUN/Creatinine Ratio 15.2; Bilirubin, Direct < 0.1 mg/dL (0-0.2); Bilirubin, Total 0.2 mg/dL (0.2-1.0); Blood Urea Nitrogen 7 mg/dL (7-18); Calcium 8.6 mg/dL (8.5-10.1); Carbon Dioxide 32 mmol/L (21-32); GFR African American 193 mL/min; GFR Non-African American 160 mL/min; Glucose 115 mg/dL (74-106); Lactate Dehydrogenase 532 U/L (84-246); Lipase 1780 U/L (73-393); Phosphorus 4.1 mg/dL (2.5-4.90); Total Protein 6.4 g/dL (6.4-8.2)
--- NOTE | 2020-08-04 06:14 | NUR ---
Urine walked up to lab
--- NOTE | 2020-08-04 07:30 | NUR ---
REPORT REPORT RECEIVED FROM NIGHT RN. PT RESTING IN BED , SEDATED AND INTUBATED. VSS . CONTINUE TO MONITOR.
--- NOTE | 2020-08-04 07:52 | NUR ---
PT TEACHING PT UNABLE TO BENEFIT FROM PT TEACHING AT THIS TIME DUE TO LACK OF RESPONSIVENESS. Addendum: 08/04/20 at 1609 by Jelena Pena RN Amended: Links added.
[2020-08-04 08:15] LABS: Urine Bacteria FEW /hpf (None Seen); Urine Blood TRACE /uL (Negative); Urine Budding Yeast FEW /hpf (None Seen); Urine Mucus FEW (None Seen); Urine Specific Gravity 1.006 (1.001-1.035); Urine WBC 1 /hpf (0 - 5)
[2020-08-04] MEDS: INSULIN LANTUS (GLARGINE) 1 /0.01ml (100units/ml) SC SCH ×2 (10:00→22:47)
[2020-08-04] MEDS: ASPirin 81 mg TAB PO SCH (10:17)
[2020-08-04] MEDS: PANTOPRAZOLE 40 MG/10 ML VIAL INJ IV SCH (10:17)
[2020-08-04] MEDS: ENOXAPARIN SOD 80 MG/0.8ML SYRINGE SC SCH ×2 (10:18→22:47)
[2020-08-04] MEDS: CEFEPIME 1 GM in SODIUM CHL 0.9% 50 ML IV SCH ×2 (10:39→22:39)
--- NOTE | 2020-08-04 12:58 | NUR ---
RECEIVED A PHONE CALL FROM [facility]. I ANSWERED THEIR QUESTIONS AND UPDATED THEM.
[2020-08-04 13:08] LABS: Basophils # (auto) 0 10 ^3/uL (0-0.2); Basophils % (auto) 0.4 % (0.0-2.0); Eosinophils # (auto) 0.1 10 ^3/uL (0-0.8); Eosinophils % (auto) 1.6 % (0.0-7.0); Hematocrit 29.5 % (36.0-46.0); Hemoglobin 9.8 g/dL (12.2-16.2); Lymphocytes # (auto) 2.3 10 ^3/uL (0.4-5.4); Lymphocytes % (auto) 26.3 % (10.0-50.0); Mean Corpuscular Hemoglobin 27.2 pg (28.0-32.0); Mean Corpuscular Hgb Conc. 33.2 g/dL (32.0-36.0); Mean Corpuscular Volume 81.9 fL (80.0-100.0); Monocytes # (auto) 0.6 10 ^3/uL (0-1.3); Monocytes % (auto) 6.8 % (0.0-12.0); Neutrophils # (auto) 5.6 10 ^3/uL (1.6-8.6); Neutrophils % (auto) 64.9 % (37.0-80.0); Nucleated Red Blood Cells % 0.1 %; Platelet Count (auto) 347 10^3/uL (140-450); Red Cell Distribution Width 13.5 % (11.8-14.3); White Blood Cell 8.6 10^3/uL (4.4-10.8)
[2020-08-04 13:27] LABS: INR 1.01 (0.9-1.15); Partial Thromboplastin Time 25.7 sec (23.0-31.2)
--- NOTE | 2020-08-04 13:38 | NUR ---
MD VISIT PT SEEN BY DR Clifford EMERSON AND UPDATED HIM ON THE PT'S CURRENT CONDITION. HE ASKED IF I COULD FIND OUT FROM [facility] , THE NEXT TIME THEY CALL, WHEN THEY ARE PLANNING ON DOING THE ORGAN DONATION.
[2020-08-04] MEDS: PROPOFOL 100 ML IV SCH (15:15)
[2020-08-04] MEDS: POTASSIUM CHL 20MEQ/100ML 100 ML IV SCH ×2 (16:15→18:15)
[2020-08-04 16:57] LABS: Albumin 1.4 g/dL (3.4-5.0); Anion Gap 3 (5-15); Blood Urea Nitrogen 7 mg/dL (7-18); Calcium 8.2 mg/dL (8.5-10.1); Carbon Dioxide 32 mmol/L (21-32); Chloride 109 mmol/L (98-107); Glucose 92 mg/dL (74-106); Magnesium 2.4 mg/dL (1.6-2.6); Potassium 3.3 mmol/L (3.5-5.1); Sodium 144 mmol/L (136-145)
--- NOTE | 2020-08-04 17:00 | NUR ---
[facility] SALES REPRESENTATIVE WIRE ROPE HERE TO SEE PATIENT AND REVIEW CHART.
[2020-08-04 17:04] LABS: Alanine Aminotransferase 28 U/L (13-56); Alkaline Phosphatase 122 U/L (45-117); Aspartate Aminotransferase 43 U/L (15-37); BUN/Creatinine Ratio 14.6; Bilirubin, Direct < 0.1 mg/dL (0-0.2); Bilirubin, Total 0.2 mg/dL (0.2-1.0); GFR African American 184 mL/min; GFR Non-African American 152 mL/min
[2020-08-04 17:05] LABS: Phosphorus 3.9 mg/dL (2.5-4.90)
--- NOTE | 2020-08-04 18:07 | NUR ---
RECEIVED PT ON VENT, VENT CONNECTED TO RED OUTLET AND O2 SOURCE. ALARMS ARE SET AND AUDIBLE. AMBU BAG AND MASK AT BEDSIDE. BS ARE FINE COURSE T/O, SXD VIA ETT FOR SCANT AMOUNT OF THIN CREAMY BALLARD. NO VENT CHANGES MADE AT THIS TIME. WILL CONTINUE TO MONITOR.
--- NOTE | 2020-08-04 19:30 | NUR ---
OPENING SHIFT NOTE RECEIVED REPORT FROM DAY SHIFT RN. ASSUMED CARE OF PATIENT. PT CONNECTED TO BEDSIDE MONITOR CURRENTLY ON VENTILATOR 8.0/24 @ LIP. AC MODE RATE 14, FIO2 50%, PEEP 10. PT SATING 99% WITH EQUAL CHEST RISE AND FALL NO DISTRESS NOTED. PT BP 110/77, HR 66. PT HAS RIGHT FEMORAL TRIPLE LUMEN CATHETER RUNNING LEVOFED @ 2MCG AND IV FLUIDS @ 150ML, OTHER LINE PATENT AND FLUSHES WELL. OG TUBE PATENT, SECURE AND CLAMPED. SÁNCHEZ SECURE TO RIGHT THIGH, FREE OF KINKS, HANGING TO GRAVITY WITH CLEAR YELLOW UOP. PT HAS BILATERAL HAND/FOOT SWELLING THAT IS PITTING +1. PT IS CURRENTLY LAYING SUPINE WITH HOB 30 DEGREE ANGLE AND POSITIONED FOR COMFORT. BED IN LOWEST LOCKED POSITION AND SAFETY PRECAUTIONS IN PLACE.
[2020-08-04] MEDS: MIDAZOLAM DRIP 50 mg/50mL 50 ML IV SCH (19:45)
[2020-08-04] MEDS: fentaNYL Drip 2500mCg/250mlNS 250 ML IV SCH (19:45)
--- NOTE | 2020-08-04 19:45 | NUR ---
REPORT REPORT GIVEN TO BLAIR RN.
[2020-08-04] MEDS: NOREPINEPHRINE 8 MG/250ML KIT 250 ML IV SCH (20:00)
[2020-08-04 22:35] LABS: Basophils # (auto) 0 10 ^3/uL (0-0.2); Eosinophils # (auto) 0.1 10 ^3/uL (0-0.8); Mean Corpuscular Hemoglobin 26.5 pg (28.0-32.0); Mean Corpuscular Volume 82.4 fL (80.0-100.0); Monocytes # (auto) 0.5 10 ^3/uL (0-1.3); Neutrophils # (auto) 5.6 10 ^3/uL (1.6-8.6)
[2020-08-04 22:36] LABS: Basophils % (auto) 0.3 % (0.0-2.0); Eosinophils % (auto) 1.5 % (0.0-7.0); Hematocrit 30.4 % (36.0-46.0); Hemoglobin 9.8 g/dL (12.2-16.2); Lymphocytes # (auto) 1.6 10 ^3/uL (0.4-5.4); Lymphocytes % (auto) 20.7 % (10.0-50.0); Mean Corpuscular Hgb Conc. 32.1 g/dL (32.0-36.0); Monocytes % (auto) 6.8 % (0.0-12.0); Neutrophils % (auto) 70.7 % (37.0-80.0); Platelet Count (auto) 355 10^3/uL (140-450); Red Blood Cells 3.69 10^6/uL (4.0-5.20)
[2020-08-04] MEDS: ATORVASTATIN 20 MG TAB PO SCH (22:41)
--- NOTE | 2020-08-04 22:49 | NUR ---
AT BEDSIDE FOR ROUTINE VENT CHECK. NO CHANGES MADE AT THIS TIME. WILL CONTINUE TO MONITOR.
[2020-08-04 22:52] LABS: Albumin 1.4 g/dL (3.4-5.0); Bilirubin, Direct 0.1 mg/dL (0-0.2); Calcium 8.4 mg/dL (8.5-10.1); INR 0.97 (0.9-1.15); Magnesium 2.4 mg/dL (1.6-2.6); Partial Thromboplastin Time 22.2 sec (23.0-31.2); Potassium 3.6 mmol/L (3.5-5.1)
[2020-08-04 22:55] LABS: BUN/Creatinine Ratio 23.3; Bilirubin, Total 0.2 mg/dL (0.2-1.0)
[2020-08-04 22:59] LABS: Phosphorus 3.8 mg/dL (2.5-4.90)
[2020-08-05] VITALS (91 sets, daily range): BP systolic 75–145; BP diastolic 39–87
[2020-08-05] MEDS: ACCU-CHEK COMFORT CURVE STRIP VI SCH ×12 (00:09→22:00)
[2020-08-05] MEDS: InsuLIN REG 1unit/0.01ml Soln (100units/ml) SC SCH ×12 (00:10→22:00)
[2020-08-05 00:11] LABS: Albumin 1.5 g/dL (3.4-5.0); Anion Gap 8 (5-15); Blood Urea Nitrogen 7 mg/dL (7-18); Calcium 8.4 mg/dL (8.5-10.1); Carbon Dioxide 25 mmol/L (21-32); Chloride 109 mmol/L (98-107); Glucose 115 mg/dL (74-106); Magnesium 2.4 mg/dL (1.6-2.6); Potassium 3.8 mmol/L (3.5-5.1); Sodium 142 mmol/L (136-145)
[2020-08-05 00:24] LABS: Alanine Aminotransferase 28 U/L (13-56); Alkaline Phosphatase 114 U/L (45-117); Aspartate Aminotransferase 45 U/L (15-37); BUN/Creatinine Ratio 17.9; Bilirubin, Direct < 0.1 mg/dL (0-0.2); Bilirubin, Total 0.2 mg/dL (0.2-1.0); GFR African American 234 mL/min; GFR Non-African American 193 mL/min
--- NOTE | 2020-08-05 02:03 | NUR ---
AT BEDSIDE FOR ROUTINE VENT CHECK. SXD VIA ETT FOR SMALL THIN BALLARD/ CLEAR. NO CHANGES MADE AT THIS TIME. WILL CONTINUE TO MONITOR.
--- NOTE | 2020-08-05 02:15 | NUR ---
[facility] T/C FROM MCKENZIE FROM [facility]. PATIENT VERIFIED AND ANSWERED ALL QUESTIONS. MCKENZIE SAID THE PLAN IS BASED UPON OR AVAILABILITY @ 1600 08/05/20. WILL ENDORSE PLAN TO DAY SHIFT RN.
--- NOTE | 2020-08-05 03:00 | NUR ---
ORAL CARE ORAL CARE DONE. PATIENT TOLERATED WELL.
[2020-08-05 04:23] LABS: Basophils # (auto) 0 10 ^3/uL (0-0.2); Eosinophils # (auto) 0.1 10 ^3/uL (0-0.8); Hematocrit 32.5 % (36.0-46.0); Monocytes # (auto) 0.4 10 ^3/uL (0-1.3); Nucleated Red Blood Cells % 0.1 %
[2020-08-05 04:26] LABS: Basophils % (auto) 0.6 % (0.0-2.0); Eosinophils % (auto) 1.5 % (0.0-7.0); Hemoglobin 10.4 g/dL (12.2-16.2); Lymphocytes # (auto) 1.5 10 ^3/uL (0.4-5.4); Lymphocytes % (auto) 20.2 % (10.0-50.0); Mean Corpuscular Hemoglobin 26.5 pg (28.0-32.0); Mean Corpuscular Hgb Conc. 32.1 g/dL (32.0-36.0); Mean Corpuscular Volume 82.5 fL (80.0-100.0); Monocytes % (auto) 5.8 % (0.0-12.0); Neutrophils # (auto) 5.2 10 ^3/uL (1.6-8.6); Neutrophils % (auto) 71.9 % (37.0-80.0); Platelet Count (auto) 371 10^3/uL (140-450); Red Blood Cells 3.94 10^6/uL (4.0-5.20); Red Cell Distribution Width 13.9 % (11.8-14.3); White Blood Cell 7.3 10^3/uL (4.4-10.8)
[2020-08-05] MEDS: SODIUM CHLORIDE 0.9% 1,000 ML IV SCH ×2 (04:35→12:35)
[2020-08-05] MEDS: VANCOMYCIN 1GM/250ML 250 ML IV SCH ×3 (04:36→21:04)
[2020-08-05 04:37] LABS: INR 0.98 (0.9-1.15); Partial Thromboplastin Time 26.3 sec (23.0-31.2)
[2020-08-05 04:39] LABS: Albumin 1.5 g/dL (3.4-5.0); Calcium 8.5 mg/dL (8.5-10.1); Magnesium 2.4 mg/dL (1.6-2.6); Potassium 3.4 mmol/L (3.5-5.1)
[2020-08-05 04:51] LABS: Bilirubin, Direct 0.1 mg/dL (0-0.2); Bilirubin, Total 0.2 mg/dL (0.2-1.0); Phosphorus 4.1 mg/dL (2.5-4.90); Total Protein 6.3 g/dL (6.4-8.2)
--- NOTE | 2020-08-05 07:00 | NUR ---
BLOOD PRESSURE PATIENTS BLOOD PRESSURE DROPPED TO 81/44. TITRATED LEVO TO 4 MCG. BLOOD PRESSURE 106/56 ON REASSESSMENT.
--- NOTE | 2020-08-05 07:38 | NUR ---
CLOSING NOTE GAVE REPORT TO DAY SHIFT RN. PT ON VENTILATOR. NO DISTRESS NOTED. BED IN LOWEST LOCKED POSITION AND SAFETY PRECAUTIONS IN PLACE.
--- NOTE | 2020-08-05 08:30 | NUR ---
SPOKE WITH [facility] COORDINATOR TITUS FOR UPDATE, NO NEW ORDERS
--- NOTE | 2020-08-05 08:35 | NUR ---
[facility] DIGESTER HAND DENZEL PRESENT TO SEE PATIENT AND REVIEW CHART.
[2020-08-05 08:54] LABS: Urine Amorphous Crystal FEW /hpf (None Seen); Urine Bacteria FEW /hpf (None Seen); Urine Blood Negative /uL (Negative); Urine Mucus FEW (None Seen); Urine Specific Gravity 1.007 (1.001-1.035); Urine WBC 4 /hpf (0 - 5)
--- NOTE | 2020-08-05 08:54 | NUR ---
MD DR.L ADKINS PAGED REGARDING ORDER CLARIFICATION FOR IV MAINTENANCE FLUID ADMINISTRATION. AWAITING RESPONSE AT THIS TIME.
[2020-08-05] MEDS: ENOXAPARIN SOD 80 MG/0.8ML SYRINGE SC SCH (10:00)
[2020-08-05] MEDS: CEFEPIME 1 GM in SODIUM CHL 0.9% 50 ML IV SCH (10:00)
[2020-08-05] MEDS: ASPirin 81 mg TAB PO SCH (10:00)
[2020-08-05] MEDS: INSULIN LANTUS (GLARGINE) 1 /0.01ml (100units/ml) SC SCH ×2 (10:00→22:00)
[2020-08-05] MEDS: PANTOPRAZOLE 40 MG/10 ML VIAL INJ IV SCH (10:00)
[2020-08-05 10:08] LABS: Eosinophils # (auto) 0.1 10 ^3/uL (0-0.8); Eosinophils % (auto) 1.4 % (0.0-7.0); Hemoglobin 10.2 g/dL (12.2-16.2); Monocytes # (auto) 0.4 10 ^3/uL (0-1.3); White Blood Cell 6.8 10^3/uL (4.4-10.8)
[2020-08-05 10:09] LABS: Basophils # (auto) 0 10 ^3/uL (0-0.2); Basophils % (auto) 0.7 % (0.0-2.0); Hematocrit 31.8 % (36.0-46.0); Lymphocytes # (auto) 1.4 10 ^3/uL (0.4-5.4); Lymphocytes % (auto) 20.4 % (10.0-50.0); Mean Corpuscular Hemoglobin 26.3 pg (28.0-32.0); Mean Corpuscular Hgb Conc. 32.2 g/dL (32.0-36.0); Mean Corpuscular Volume 81.7 fL (80.0-100.0); Monocytes % (auto) 6.3 % (0.0-12.0); Neutrophils # (auto) 4.8 10 ^3/uL (1.6-8.6); Neutrophils % (auto) 71.2 % (37.0-80.0); Nucleated Red Blood Cells % 0.2 %; Platelet Count (auto) 353 10^3/uL (140-450); Red Blood Cells 3.89 10^6/uL (4.0-5.20); Red Cell Distribution Width 13.5 % (11.8-14.3)
[2020-08-05 10:19] LABS: INR 0.98 (0.9-1.15); Partial Thromboplastin Time 23.2 sec (23.0-31.2)
--- NOTE | 2020-08-05 10:26 | NUR ---
Nutrition Followup Note Wt: 68.9 kg Continue current plan of care. pt is currently awaiting [facility] for organ donation. OR is sched for 1600 today per RN note Est energy needs 3275-0256 kcal (25-30 kcal/kg IBW 63.6kg) est protein needs 64-70g (1-1.1g/kg IBW 63.6kg) Will monitor and reassess prn. Labs: GLUC 130H, Creat 0.43L, Alb 1.5L, BUN 6L BM: Pt with 1 Bm 08/04 Skin: BS 12 high risk, full details in aged or disabled carer note. PES: Inadequate oral intake aeb pt with NPO diet order, intubated and sedated r/t current medical condition Altered nutrition related labs aeb pt with hyperglycemia, elevated HgbA1c, hypoalb r/t current and chronic medical conditions Comments: Continue to monitor NPO status, labs, skin. F/u high 2-3 days. Rec: 1) continue current plan of care. 2) advance diet as medically feasible
--- NOTE | 2020-08-05 10:49 | NUR ---
LAB LAB AT BEDSIDE FOR ADDITIONAL BLOOD DRAW.
--- NOTE | 2020-08-05 10:57 | NUR ---
MD LAI AT BEDSIDE FOR PT AND VENTILATOR ASSESSMENT. DR. PARRA UPDATED ON PT'S NEWEST LABS/ABG AND VENT SETTINGS. NO NEW ORDERS RECEIVED AT THIS TIME.
--- NOTE | 2020-08-05 10:58 | NUR ---
MD DR.L ADKINS PAGED PER [facility] REQUEST IN ORDER TO SECURE OPERATING ROOM TIME.
--- NOTE | 2020-08-05 11:07 | NUR ---
MD DR. Clifford ADKINS COVERING DR Aidan ADKINS. DR Clifford ADKINS UPDATED ON PT'S CONDITION AND PREVIOUSLY DISCUSSED PLAN OF CARE. ORDERS RECEIVED TO DISCONTINUE D5 0.45% MAINTENANCE FLUID ORDER.
[2020-08-05 11:23] LABS: Albumin 1.8 g/dL (3.4-5.0); Calcium 8.6 mg/dL (8.5-10.1); Magnesium 2.4 mg/dL (1.6-2.6); Potassium 3.6 mmol/L (3.5-5.1)
[2020-08-05 11:26] LABS: BUN/Creatinine Ratio 10.3; Bilirubin, Direct 0.1 mg/dL (0-0.2); Bilirubin, Total 0.3 mg/dL (0.2-1.0); Total Protein 7.3 g/dL (6.4-8.2)
--- NOTE | 2020-08-05 11:48 | NUR ---
RADIOLOGY RADIOLOGY AT BEDSIDE FOR PORTABLE CXR.
[2020-08-05] MEDS ORDERED: VANCOMYCIN 1GM/250ML 250 ML IV ONE (12:31)
--- NOTE | 2020-08-05 12:55 | NUR ---
RT TK RT AT BEDSIDE FOR ABG DRAW.
--- NOTE | 2020-08-05 13:10 | NUR ---
LAB LAB AT BEDSIDE. BLOOD DRAWN FROM CENTRAL LINE AND FLUSHED WITH 0.9%NS.
[2020-08-05 13:20] LABS: Mean Corpuscular Hemoglobin 26.6 pg (28.0-32.0); Mean Corpuscular Hgb Conc. 32.5 g/dL (32.0-36.0)
[2020-08-05 13:22] LABS: Hematocrit 31.5 % (36.0-46.0); Hemoglobin 10.2 g/dL (12.2-16.2); Mean Corpuscular Volume 81.9 fL (80.0-100.0); Platelet Count (auto) 404 10^3/uL (140-450); Red Blood Cells 3.84 10^6/uL (4.0-5.20); Red Cell Distribution Width 13.7 % (11.8-14.3); White Blood Cell 8.6 10^3/uL (4.4-10.8)
[2020-08-05 13:25] LABS: Basophils % (manual) 0 (0.0-2.0); Blast Cells 0; Myelocytes % 0; Promyelocytes % 0; Reactive Lymphocytes 0
[2020-08-05 13:36] LABS: INR 1.01 (0.9-1.15); Partial Thromboplastin Time 27.5 sec (23.0-31.2)
[2020-08-05 13:41] LABS: Phosphorus 4.1 mg/dL (2.5-4.90)
[2020-08-05 13:47] LABS: Urine Amorphous Crystal FEW /hpf (None Seen); Urine Bacteria FEW /hpf (None Seen); Urine Blood Negative /uL (Negative); Urine Budding Yeast FEW /hpf (None Seen); Urine Mucus FEW (None Seen); Urine Specific Gravity 1.008 (1.001-1.035); Urine WBC 1 /hpf (0 - 5)
[2020-08-05 14:35] LABS: Band Neutrophils % (manual) 2; Eosinophils % (manual) 1 (0-7); Lymphocytes % (manual) 17 (10.0-50.0); Metamyelocytes % 2; Monocytes % (manual) 3 (0-12)
[2020-08-05] MEDS: PROPOFOL 100 ML IV SCH (15:15)
--- NOTE | 2020-08-05 17:39 | NUR ---
LAB AWAITING LAB TO SEND BLOOD TUBES FOR COLLECTION. SPOKE WITH ROSARIO.
--- NOTE | 2020-08-05 17:46 | NUR ---
RADIOLOGY RADIOLOGY AT BEDSIDE FOR PORTABLE CXR.
--- NOTE | 2020-08-05 17:54 | NUR ---
LAB URINE SPECIMEN COLLECTED AND SENT TO LAB.
--- NOTE | 2020-08-05 18:21 | NUR ---
LAB LABS DRAWN AND SENT AT THIS TIME.
[2020-08-05 18:28] LABS: Urine Bacteria NONE SEEN /hpf (None Seen); Urine Blood Negative /uL (Negative); Urine Budding Yeast MODERATE /hpf (None Seen); Urine Mucus FEW (None Seen); Urine Specific Gravity 1.009 (1.001-1.035); Urine WBC 1 /hpf (0 - 5)
--- NOTE | 2020-08-05 18:39 | NUR ---
RT WINSTON RT AT BEDSIDE FOR ABG. PT'S INSULATION BOARD CALENDER OPERATOR BALLOON NO LONGER FIRM UPON REASSESSMENT. RT AT BEDSIDE AND IS AWARE.
[2020-08-05 18:40] LABS: Basophils # (auto) 0 10 ^3/uL (0-0.2); Basophils % (auto) 0.5 % (0.0-2.0); Eosinophils # (auto) 0.1 10 ^3/uL (0-0.8); Eosinophils % (auto) 1.3 % (0.0-7.0); Hematocrit 29.6 % (36.0-46.0); Hemoglobin 9.8 g/dL (12.2-16.2); Lymphocytes % (auto) 21.8 % (10.0-50.0); Mean Corpuscular Hgb Conc. 33.2 g/dL (32.0-36.0); Mean Corpuscular Volume 81.3 fL (80.0-100.0); Monocytes # (auto) 0.5 10 ^3/uL (0-1.3); Monocytes % (auto) 5.3 % (0.0-12.0); Neutrophils # (auto) 6.6 10 ^3/uL (1.6-8.6); Neutrophils % (auto) 71.1 % (37.0-80.0); Nucleated Red Blood Cells % 0.1 %; Platelet Count (auto) 393 10^3/uL (140-450); Red Blood Cells 3.64 10^6/uL (4.0-5.20); Red Cell Distribution Width 13.5 % (11.8-14.3); White Blood Cell 9.3 10^3/uL (4.4-10.8)
--- NOTE | 2020-08-05 18:43 | NUR ---
RT PER RT "I PUT THE MANAGER PERFORMANCE IMPROVEMENT UP TO 28". PRESSURE 28 CMH2O
[2020-08-05 19:01] LABS: INR 0.97 (0.9-1.15); Partial Thromboplastin Time 26.4 sec (23.0-31.2)
[2020-08-05] MEDS: NOREPINEPHRINE 8 MG/250ML KIT 250 ML IV SCH (19:15)
[2020-08-05 19:25] LABS: Albumin 1.6 g/dL (3.4-5.0); Calcium 7.9 mg/dL (8.5-10.1); Potassium 3.3 mmol/L (3.5-5.1)
[2020-08-05] MEDS: MIDAZOLAM DRIP 50 mg/50mL 50 ML IV SCH (19:45)
[2020-08-05] MEDS: fentaNYL Drip 2500mCg/250mlNS 250 ML IV SCH (19:45)
[2020-08-05 19:54] LABS: Bilirubin, Direct 0.1 mg/dL (0-0.2)
[2020-08-05 19:59] LABS: Phosphorus 3.8 mg/dL (2.5-4.90)
--- NOTE | 2020-08-05 20:00 | NUR ---
RECIEVED PT VENTILATED, NO SEDATION, SEE INTERVENTIONS FOR ASSESSMENT AND VITAL SIGNS AND GTTS, PT FOR PROCUREMENT IN AM, Q1HR U/O, TEMPS, BS Q2HRS, UA, LABS AND CXR CONTINUE
[2020-08-05 20:19] LABS: Bilirubin, Total 0.2 mg/dL (0.2-1.0)
[2020-08-05 23:43] LABS: Albumin 1.5 g/dL (3.4-5.0); BUN/Creatinine Ratio 13.3; Bilirubin, Direct 0.1 mg/dL (0-0.2); Calcium 7.8 mg/dL (8.5-10.1); Magnesium 2.5 mg/dL (1.6-2.6); Potassium 3.6 mmol/L (3.5-5.1)
[2020-08-05 23:46] LABS: Bilirubin, Total 0.2 mg/dL (0.2-1.0)
[2020-08-06] VITALS (31 sets, daily range): BP systolic 73–166; BP diastolic 34–95
[2020-08-06] MEDS: CEFEPIME 1 GM in SODIUM CHL 0.9% 50 ML IV SCH ×2 (00:11→09:50)
[2020-08-06] MEDS: ATORVASTATIN 20 MG TAB PO SCH (00:36)
[2020-08-06] MEDS: ENOXAPARIN SOD 80 MG/0.8ML SYRINGE SC SCH (00:36)
--- NOTE | 2020-08-06 01:20 | NUR ---
SPOKE WITH [facility] [employer]IT[facility], UPDATE GIVEN, NO CHANGES
[2020-08-06] MEDS: ACCU-CHEK COMFORT CURVE STRIP VI SCH ×6 (02:28→10:10)
[2020-08-06] MEDS: InsuLIN REG 1unit/0.01ml Soln (100units/ml) SC SCH ×5 (02:28→10:00)
[2020-08-06] MEDS: SODIUM CHLORIDE 0.9% 1,000 ML IV SCH ×3 (04:00→09:49)
--- NOTE | 2020-08-06 05:00 | NUR ---
COMPLETE BATH GIVEN AND PARTIAL LINEN CHANGE, YELLOW VAGINAL DISCHARGE NOTED,
[2020-08-06] MEDS: VANCOMYCIN 1GM/250ML 250 ML IV SCH (06:03)
[2020-08-06 07:58] LABS: Urine Amorphous Crystal FEW /hpf (None Seen); Urine Bacteria FEW /hpf (None Seen); Urine Blood TRACE /uL (Negative); Urine Budding Yeast FEW /hpf (None Seen); Urine Mucus FEW (None Seen); Urine Specific Gravity 1.007 (1.001-1.035); Urine WBC 5 /hpf (0 - 5)
--- NOTE | 2020-08-06 08:00 | NUR ---
Opening Shift Note Assumed care of patient, ET to white hospital vent, no sedation. No S/S of distress/SOB or pain. See interventions for complete assessment. Bed locked on low position, side rails up x2, bed alarms on at all times, will continue to monitor for changes Q1hr and PRN.
[2020-08-06 08:38] LABS: Hemoglobin 9.6 g/dL (12.2-16.2); Mean Corpuscular Volume 81.5 fL (80.0-100.0)
[2020-08-06 08:39] LABS: Hematocrit 29.5 % (36.0-46.0); Mean Corpuscular Hemoglobin 26.4 pg (28.0-32.0); Mean Corpuscular Hgb Conc. 32.4 g/dL (32.0-36.0); Platelet Count (auto) 371 10^3/uL (140-450); Red Blood Cells 3.62 10^6/uL (4.0-5.20); Red Cell Distribution Width 13.3 % (11.8-14.3)
[2020-08-06 09:01] LABS: Potassium 3.4 mmol/L (3.5-5.1)
[2020-08-06 09:02] LABS: Basophils % (manual) 0 (0.0-2.0); Blast Cells 0; Eosinophils % (manual) 0 (0-7); Myelocytes % 0; Promyelocytes % 0; Reactive Lymphocytes 0
[2020-08-06 09:10] LABS: Partial Thromboplastin Time 25.9 sec (23.0-31.2)
--- NOTE | 2020-08-06 09:10 | NUR ---
Paged Dr Mirella Bean regarding patient's scheduled organ procurement and the need for a physician to pronounce . verbalized understanding and stated "I can't make it, I want you to call [facility] centrifug[facility] operator and see if they can find another doctor to do it." Read back and verified.
[2020-08-06 09:14] LABS: Albumin 1.5 g/dL (3.4-5.0); BUN/Creatinine Ratio 11.4; Bilirubin, Direct 0.1 mg/dL (0-0.2); Bilirubin, Total 0.3 mg/dL (0.2-1.0); Calcium 8.2 mg/dL (8.5-10.1); Magnesium 2.3 mg/dL (1.6-2.6); Phosphorus 3.5 mg/dL (2.5-4.90); Total Protein 6.1 g/dL (6.4-8.2)
[2020-08-06 09:36] LABS: Band Neutrophils % (manual) 6; Lymphocytes % (manual) 16 (10.0-50.0); Metamyelocytes % 1; Monocytes % (manual) 5 (0-12)
[2020-08-06] MEDS: PANTOPRAZOLE 40 MG/10 ML VIAL INJ IV SCH (09:50)
[2020-08-06] MEDS: INSULIN LANTUS (GLARGINE) 1 /0.01ml (100units/ml) SC SCH (10:00)
[2020-08-06] MEDS ORDERED: HEPARIN SODIUM (PORCINE) 5000 UNITS/ML 1ML VIAL IV ONE ×2 (10:45→11:00)
--- NOTE | 2020-08-06 11:02 | NUR ---
Annamaria Spain, Eliseinr pulled out and scanned, endorsed to Justine ZAVALA of [facility].
--- NOTE | 2020-08-06 11:15 | NUR ---
Patient brought to OR with Shamar VILLALPANDO and Justine ZAVALA of [facility].
--- NOTE | 2020-08-06 11:29 | NUR ---
Spoke to patient's sister Linnea regarding personal belongings and sister stated "Just toss it" read back and verified.
== END 2020-08-06 13:00 | DRG 720 ==
LOC: ER 14:57 → EDBD 14:57 → TELE 14:58 → CATH ICU 07-28 14:14
PROVIDERS: ADMIT Internal Medicine; ATTEND Internal Medicine
PROC: 5A1955Z Respiratory Ventilation, Greater than 96 Consecutive Hours (ICD-10-PCS; principal; 2020-07-26)
PROC: 0BH17EZ Insertion of Endotracheal Airway into Trachea, Via Natural or Artificial Opening (ICD-10-PCS; 2020-07-26)
PROC: B54BZZA Ultrasonography of Right Lower Extremity Veins, Guidance (ICD-10-PCS; 2020-07-29)
PROC: 06HY33Z Insertion of Infusion Device into Lower Vein, Percutaneous Approach (ICD-10-PCS; 2020-07-29)
DX: A41.89 Other specified sepsis (principal); J96.01 Acute respiratory failure with hypoxia; E11.10 Type 2 diabetes mellitus with ketoacidosis without coma; G93.6 Cerebral edema; J69.0 Pneumonitis due to inhalation of food and vomit; G92 Toxic encephalopathy; N17.9 Acute kidney failure, unspecified; E66.9 Obesity, unspecified; I24.9 Acute ischemic heart disease, unspecified; E87.5 Hyperkalemia; E86.0 Dehydration; F10.129 Alcohol abuse with intoxication, unspecified; I82.C11 Acute embolism and thrombosis of right internal jugular vein; Z66 Do not resuscitate; F32.9 Major depressive disorder, single episode, unspecified; F41.9 Anxiety disorder, unspecified; Z20.828 Contact with and (suspected) exposure to other viral communicable diseases; L89.891 Pressure ulcer of other site, stage 1; N18.9 Chronic kidney disease, unspecified; E11.22 Type 2 diabetes mellitus with diabetic chronic kidney disease; I12.9 Hypertensive chronic kidney disease with stage 1 through stage 4 chronic kidney disease, or unspecified chronic kidney disease; Z68.28 Body mass index [BMI] 28.0-28.9, adult; E78.5 Hyperlipidemia, unspecified; G93.5 Compression of brain; I63.89 Other cerebral infarction
CPT/HCPCS: 31500; 36415; 36556; 36600; 51702; 70450; 71045; 71250; 74176; 76700; 76775; 80048; 80053; 80061; 80202; 80307; 80320; 81001; 82010; 82140; 82150; 82248; 82306; 82330; 82550; 82570; 82805; 82962; 82977; 83036; 83605; 83615; 83690; 83735; 83880; 83930; 84100; 84156; 84166; 84443; 84484; 84702; 85007; 85025; 85027; 85610; 85730; 86704; 86706; 86708; 86803; 86850; 86900; 86901; 87040; 87070; 87077; 87081; 87086; 87186; 87205; 87340; 87426; 87804; 93005; 93306; 93886; 93971; 94002; 94003; 94640; 95819; 96365; 96366; 96368; 96375; 99291; C9113; G0378; J0696; J1815; J2250; J2704; J3480; J7060